=== PATIENT | male | born 1970 | race African-American/Black ===

== ENCOUNTER → 2021-01-10 09:41 | Outpatient (BNVA) | payer OTHER, SELFPAY | PROVIDERS: PCP Internal Medicine; Visit Provider Urology ==

== ENCOUNTER → 2022-01-08 09:17 | Outpatient (BNVA) | payer OTHER, SELFPAY | PROVIDERS: PCP Internal Medicine; Visit Provider Urology ==

== ENCOUNTER → 2022-11-05 11:00 | Outpatient (BNVA) | payer OTHER, SELFPAY | PROVIDERS: PCP Internal Medicine; Visit Provider Urology | DX: N52.9 Male erectile dysfunction, unspecified (principal); E29.1 Testicular hypofunction | CPT/HCPCS: 99212 ==

== ENCOUNTER 2023-10-16 14:57 | Outpatient (AMB) | payer MEDICAID, SELFPAY ==
--- NOTE | 2023-10-16 15:08 | A.OFFVIS_ITS ---
Intake Intake Visit Reasons: follow up/ Medication Intake Note: Patient is Present for Follow Up Urology Medication:Tadalafil Antibiotic Allergies: none Blood Thinners: None Allergies metal Allergy (Unknown, Uncoded 11/05/22 11:29) Unknown Soap & Cleansers Allergy (Unknown, Uncoded 08/26/19 00:00) betito dishwashing soap HPI HPI Comments History of Present Illness Details Edmundo PALACIO is a very pleasant male. They are a patient of Dr Izquierdo? . They are seen in the office today for the following urologic conditions. - epididymal scarring - erectile dysfunction - microscopic hematuria Here for yearly follow-up Baseline daily tadalafil 10 mg Like to switch from 20 mg on demand to the 100 mg sildenafil Prescriptions were provided Will check PSA Microscopic Hematuria: Clear on exam - has neovascularity on back of prostate Stable with no recurrence. Microscopic hematuria was diagnosed during routine UA with PCP. They are here for the 12 month evaluation. Since the last visit the patient has has not noticed gross hematuria, continues to test postive for microscopic hematuria. Relevant medical history for renal insufficiency, tobacco use. Associated symptoms include dysuria No frequency No urgency No decreased urinary stream No pain No nausea No weight loss No Radiographic imagin , CT IVP normal. Other investigations 05/03 , cytology, normal. Erectile dysfunction: He presents today for for continued evaluation and management of erectile dysfunction. Symptoms have been present for/since several months ago. Procedure(s)/Diagnosis causing dysfunction include renal insufficiency - does not get adequate sleep. Current treatment includes none. Prior therapies include oral medications - has responded. At this time he experiences erections are partial and adequate for vaginal penetration, that undergo rapid detumesence after penetration, RAFAEL 12- 16 Mild-Moderate ED. Nocturnal erections do not occur. Currently they are in a stable relationship. Overall he is is not satisfied with the current management. Therapeutic plan includes oral medication - generic rx provided COUNTS INCLUDE 234 BEDS AT THE [facility] Medical History Anxiety Chronic kidney disease, stage 3 Chronic obstructive pulmonary disease (COPD) Eczema Epididymal pain Erectile dysfunction due to arterial insufficiency HTN (hypertension) Hypogonadism in male Microscopic hematuria OA (osteoarthritis) Tobacco abuse Review of Systems Const Denies chills and Denies fever(s) Card Reports no additional complaints and Denies syncope Resp Denies cough GI Denies abdominal pain and Denies heartburn Reports as per HPI and Denies change in libido Neuro Denies syncope Psych Denies change in libido Endo Denies change in libido Physical Exam Const General: cooperative, healthy appearing, comfortable and no acute distress Orientation/consciousness: patient oriented x3 HEENT Face and sinus: Yes normal facial exam Mouth: moist mucous membranes Neck Neck: Yes normal visual inspection, Yes full ROM and Yes trachea midline Chest Chest palpation & inspection: normal inspection of the chest Resp Effort & Inspection: normal respiratory effort, able to speak in complete sentences and no respiratory distress GI Inspection: Yes normal to inspection Back/Spine/Pelvis Cervical Spine: normal cervical lordosis Thoracic/Lumbar Spine: thoracic and lumbar spine normal to inspection Skin General skin exam: no rashes or lesions noted Neuro General: patient oriented x3, gait normal, tone normal and moves all extremities Extrem General: Yes normal to inspection and Yes capillary refill normal Assessment & Plan Assessment & Plan (1) Erectile dysfunction: Code(s): N52.9 - Male erectile dysfunction, unspecified Qualifiers: Erectile dysfunction type: vasculogenic Vasculogenic erectile dysfunction type: due to arterial insufficiency Qualified Code(s): N52.01 - Erectile dysfunction due to arterial insufficiency (2) Hypogonadism: Plan 12 month follow-up PSA Orders: Orders Prostate Specific Antigen 364 Days N52.9 - Male erectile dysfunction, unspecified Medications: New sildenafil administer 60 minutes before intended activity 100 mg PO ONCE 30 tabs 1RF sexual activity 30 days E11.69 - Type 2 diabetes mellitus with other specified complication, N52.1 - Erectile dysfunction due to diseases classified elsewhere, N52.9 - Male erectile dysfunction, unspecified Discontinued tadalafil Discontinued Reason: Patient Completed Course 20 mg PO DAILY PRN 30 tabs 3RF sexual activity 30 days N52.9 - Male erectile dysfunction, unspecified Patient Instructions: Imaging studies, laboratory and physical exam results were discussed and reviewed in detail. No major barriers to patient understanding were identified. An opportunity to ask questions regarding the treatment plan was provided. All questions were answered. The patient expressed understanding and agreement with the above treatment plan. The patient is aware they should contact our office by phone for worsening of their current condition or the appearance of new urologic symptoms. Compliance is encouraged with any medications and followup testing that is ordered. It is a privilege to participate in the urologic care of your patient. If you have any questions or concerns regarding treatment for the above conditions, or other urologic issues, please do not hesitate to contact me. The office telephone contact is [phone]. This note is constructed using voice recognition software. While every effort has been made to ensure accuracy aeronautical engineering officer errors may have been included. Yours sincerely, Dr Alfonso Galindo MD, [facility] - Urology Providers of Expert, Compassionate Care for the Genitourinary System Coding Level of Care Code Est Pt Level 4 (08334) Diagnoses Erectile dysfunction due to arterial insufficiency N52.01 Erectile dysfunction type: vasculogenic Vasculogenic erectile dysfunction type: due to arterial insufficiency Hypogonadism
== END 2023-10-16 15:47 | disposition home or self-care (01) ==
PROVIDERS: PCP Internal Medicine; Visit Provider Urology
DX: N52.01 Erectile dysfunction due to arterial insufficiency (principal)
CPT/HCPCS: 99214

== ENCOUNTER → 2023-10-16 14:57 | Outpatient (BNVA) | payer OTHER, SELFPAY | PROVIDERS: PCP Internal Medicine; Visit Provider Urology | DX: N52.01 Erectile dysfunction due to arterial insufficiency (principal) | CPT/HCPCS: 99212 ==

== ENCOUNTER 2025-02-24 08:30 | Outpatient (REF) | payer MEDICAID, SELFPAY ==
--- OUTSIDE RECORDS SUMMARY | 2025-02-24 08:34 | XMS_ITS | Encounter Summary ---
Author Organization [facility] Address [address] [place] [address] Phone Care Team Providers Care Pig Machine Operator Name Role Phone Kendall Lane MD Primary Care Provider [phone] Encounter Details Date Type Department Care Team (Late st Contact Info) Description 2022 Telephone [facility] [address] [place] [address] Branden Lmoeli MD [address] [place] [address], [address] [address] Social History Tobacco Use Types Packs/Day Years Used Date Smoking Tobacco: Every Day Cigarettes 0.3 36.3 Started: 11/16/1988 Smokeless Tobacco: Never Alcohol Use Standard Drinks/Week Comments Yes 0 (1 standard drink = 0.6 oz pure alcohol) Alcoholic Drinks/day: Occasional social drink Sex and Gender Information Value Date Recorded Sex Assigned at Not on file Legal Sex Male 4:40 PM EST Gender Identity Not on file Sexual Orientation Not on file documented as of this encounter Miscellaneous Notes * Telephone Encounter - Vivian Corado - 09/24/2022 11:38 AM EST Pls advise, I thought it was a one time deal * Telephone Encounter - Deena Serna - 09/22/2022 9:40 AM EST Pt called back he needs this sent over today because he is now out of meds Thank you * Telephone Encounter - Deena Serna - 2022 8:36 AM EDT Pt called, he needs a refill for Suboxone please send to [facility] on [address] Thank you documented in this encounter Plan of Treatment Not on file documented as of this encounter Visit Diagnoses Not on filedocumented in this encounter Care Teams Pig Machine Operator Relationship Specialty Start Date End Date Kendall Lane MD [address] [place] [address] PCP - General Internal Medicine 02/10/24 documented as of this encounter
--- OUTSIDE RECORDS SUMMARY | 2025-02-24 08:34 | XMS_ITS | Clinical Summary ---
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 Do not stop for any reason without calling [phone]. 02/25/2024 Active cyclobenzaprine (FLEXERIL) 10 mg tablet Take 1 Tablet by mouth 3 times daily as needed. Active empagliflozin (Jardiance) 10 mg tablet Take 10 mg by mouth daily. 09/15/2024 Active gabapentin (NEURONTIN) 300 mg capsule 1 Capsule 3 times daily. 02/09/2024 Active hydrOXYzine HCL (ATARAX) 25 mg tablet 1 Tablet as needed. 02/04/2024 Active metoprolol succinate (TOPROL-XL) 25 mg 24 hr tablet Take 1 Tablet by mouth daily. 02/25/2024 Active rosuvastatin (CRESTOR) 40 mg tablet Take 1 Tablet by mouth daily. 02/25/2024 Active sildenafiL (VIAGRA) 100 mg tablet 1 Tablet as needed. 02/22/2024 Active spironolactone (ALDACTONE) 25 mg tablet Take 0.5 Tablets by mouth daily for 180 days. 09/15/2024 03/14/20 Active traZODone (DESYREL) 50 mg tablet 1 Tablet as needed. 12/20/2023 Active valACYclovir (VALTREX) 1 gram tablet Take 1 Tablet by mouth as needed. Active valsartan (DIOVAN) 40 mg tablet Take 1 Tablet by mouth daily. 07/05/2024 Active warfarin (COUMADIN) 7.5 mg tablet Take 1 Tablet by mouth daily. Pt is followed by [facility]. 02/09/2024 Active clonazePAM (KlonoPIN) 1 mg tablet Take 1 tablet (1 mg total) by mouth 2 (two) times a day. Active Active Problems Problem Noted Date Diagnosed Date Tobacco use 12/26/2024 Assessment & Plan (12/26/2024 3:38 PM EST): - Advised to quit smoking - Prefers to quit cold turkey without cessation aids Coronary artery disease invo lving cabazon coronary artery of cabazon heart without angina pectoris 02/25/2024 Overview (10/11/2024): NSTEMI 01/2024 with MIMA proximal and distal LCX Last Assessment & Plan: Patient is the patient denies any anginal sounding chest discomfort. Continue ongoing medical therapy with beta-lizeth, Plavix and statin. He is not on aspirin due to his warfarin therapy. Assessment & Plan (01/10/2025 6:21 PM EST): Orders: ECG 12 lead MR Cardiac Morphology and Function wo and w Contrast; Future Assessment & Plan (12/26/2024 3:38 PM EST): Stable-no recurrent anginal sx. - Discontinue Plavix in January 2025 - Maintain regimen of aspirin 81 mg and Coumadin thereafter Orders: ECG 12 lead Ischemic cardiomyopathy 02/25/2024 Overview (12/26/2024): - LVEF 25-30% at the time of his NM - Repeat echo most recently-presumably on maximally tolerated GDMT from November 2024 showed moderate to severe, segmental LV systolic dysfunction with ejection fraction of 30 to 35%, akinesis of the mid anteroseptal, mid anterior, apical anterior, and apical septal mc without obvious LV apical thrombus noted though Dr Rosen could not be 100% certain about this, normal RV size and systolic function, grade 1 diastolic dysfunction consistent with normal left atrial pressure, normal pulmonary artery systolic pressure-roughly unchanged from May 2024 - intolerant to Entresto with side effect of GI upset Assessment & Plan (01/10/2025 6:21 PM EST): Orders: Ambulatory referral to Cardiac Electrophysiology ECG 12 lead MR Cardiac Morphology and Function wo and w Contrast; Future Assessment & Plan (12/26/2024 3:38 PM EST): Stable. Despite revascularization and GDMT to the extent tolerated, there has been no significant recovery of ejection fraction above 35%. Thankfully he is asymptomatic and euvolemic with NYHA Class 0-1 sx. - Continue current GDMT regimen: spironolactone 25 mg daily, metoprolol 25 mg daily (XL preparation), valsartan 40 mg daily, Jardiance 10 mg daily-will need an updated BMP after spironolactone initiation. I have ordered to be done first available. - Arrange consultation with EP to discuss potential placement of a subcutaneous defibrillator - Encourage adherence to GDMT for potential improvement in ejection fraction - I have given him some literature about AICDs to read on his own time. Orders: Basic metabolic panel; Future Ambulatory referral to Cardiac Electrophysiology; Future Left ventricular apical thrombus 02/04/2024 Overview (10/11/2024): Last Assessment & Plan: There is a small apical thrombus persistent on echocardiogram from 05/2024. Continue Coumadin as prescribed and followed by the [facility] with a goal INR 2-3. Will recheck his LVEF and thrombus in his upcoming echocardiogram in about 3 months time. Assessment & Plan (12/26/2024 3:38 PM EST): Seems to have resolved but given the persistent nidus for the thrombus due to apical akinesis. - Continue Coumadin with an INR goal of 2-3 - Consider transitioning to DOAC in the future Hyperlipidemia 12/31/2022 Overview (10/11/2024): Last Assessment & Plan: Well-controlled lipid profile on current dose statin. 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 Seen for hypogonadism. Flexible cystoscopy done. Urology (04/15/18): Started on tamsulosin. Lab work ordered. CT abdomen and pelvis ordered. Evaluate for hypogonadism and male. Follow-up in 2-3 weeks for cystoscopy. Anxiety 02/15/2018 Primary hypertension 02/09/2018 Overview (10/11/2024): Last Assessment & Plan: Patient's blood pressure is well-controlled on current regimen of SGLT2, ARB and beta-lizeth. Continue to follow with addition of MRA Cocaine use 03/31/2016 Overview (10/11/2024): Accidental heroin overdose 08/16/21 Seeing [facility] in [place], [place] 03/2016 CKD (chronic kidney disease) stage 3, GFR 30-59 ml/min ([facility] V24, [facility] V28) 04/18/2015 Overview (10/11/2024): Renal (09/06/17): resolving herson cause unkown, repeat labs. Dr Tatum Secondary to HERSON Hospitalized at [facility] 03/2015 with creatinine 10 - thought 2/2 rhabdo 2/2 cocaine abuse, NSAIDs, uncontrolled HTN Spot spep showed monoclonal IgG Lambda - 24h urine pending Following with renal and trasplant associates Most recent creatinine 1.7 Eczema 09/05/2014 Left knee pain 06/08/2014 Overview (10/11/2024): [facility] - 06/06/14 - Kenalog injection; followup as needed Shoulder bursitis 01/12/2013 Generalized osteoarthrosis, involving multiple s ites 12/07/2012 Chronic low back pain 08/13/2010 Overview (10/11/2024): MRI 10/2012 discogenic degenerative changes at the L4-5 and L5-S1 levels, with diffuse bulging of the L4-5 disc and a COPD (chronic obstructive pu lmonary disease) ([facility] V24, [facility] V28) 08/13/2010 Overview (10/11/2024): IMPRESSION: Moderate obstructive ventilatory defect with reversibility to inhaled bronchodilator and with a borderline reduced DLCO. These results are most consistent with, but not diagnostic of, airways disease like asthma or COPD with a reversible component and some early emphysema. 02 saturation, resting on room air, was normal at 97%. Encounters Date Type Department Care Team Description 02/14/2025 Telephone [facility] [address] [place] [address] Kade Lunsford MD Procedure (Primary ICD ) 02/13/2025 Telephone [facility] - [address] [place] [address] Kade Lunsford MD Results 01/19/2025 Telephone [facility] [address] [place] [address] Kade Lunsford MD Appointment (Cardiac MRI) 01/10/2025 3:25 PM EST Consult [facility] - [address] [place] [address] Kade Lunsford MD Coronary artery disease involving cabazon coronary artery of cabazon heart without angina pectoris (Primary Dx); Ischemic cardiomyopathy 12/26/2024 11:20 AM EST Office Visit [facility] [address] [place] [address] Joanna Rosen MD Coronary artery disease involving cabazon coronary artery of cabazon heart without angina pectoris (Primary Dx); Ischemic cardiomyopathy; Left ventricular apical thrombus; Tobacco use 12/07/2024 3:00 PM EST Ancillary Procedure [facility] [address] [place] [address] Ischemic cardiomyopathy; Coronary artery disease involving cabazon coronary artery of cabazon heart without angina pectoris; Primary hypertension; Hyperlipidemia, unspecified hyperlipidemia type; Left ventricular apical thrombus from Last 3 Months Immunizations Name Administration Dates Next Due Influenza trivalent, 0.5mL, preservative free (Fluarix; FluLaval; Fluzone) ages 6mo and older (Afluria) 3 years and older 07/13/2014 Tdap Tetanus diptheria acell ular pertussis (Boostrix; Adacel) 7yo and older 01/20/2020,08/13/2010 Surgical History Surgery Date Site/Laterality Comments OTHER SURGICAL HISTORY PROCEDURE: DENIES PREVIOUS SURGERY; COMMENT: ? groin hernia repair as child Medical History Medical History Date Comments Chronic low back pain 08/13/2010 DX:Chronic low back pain COPD (chronic obstructive pu lmonary disease) ([facility] V24, [facility] V28) 08/13/2010 DX:COPD (chronic o bstructive pulmonary disease) ([facility]) Smoking DX:Smoking Atopic dermatitis DX:Atopic derm atitis Anxiety 02/15/2018 DX:Anxiety Microscopic hematuria 04/29/2018 DX:Microsc opic hematuria Recurrent genital herpes simplex 09/21/2018 DX:Recurrent genital herpes simplex Type 2 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, without long-term current use of insulin ([facility] V24, [facility] V28) 12/31/2022 DX:Type 2 diabetes mellitus with chronic kidney disease, without long-term current use of insulin ([facility]) Family History Medical History Relation Name Comments Arthritis Father Relation Name Status Comments Brother Alive HIV, DM Daughter 1 Alive Healthy Daughter 2 Alive Healthy Father Lung CA (+ smok er) Mother DM Sister (Age 45) Murder Social History Tobacco Use Types Packs/Day Years Used Date Smoking Tobacco: Every Day Cigarettes Tobacco Cessation:Ready to Q uit: Not Asked; Counseling Given: Not Answered Comments:10 cigarettes daily Alcohol Use Standard Drinks/Week Comments Not Currently 0 (1 standard drink = 0.6 oz pur e alcohol) Sex and Gender Information Value Date Recorded Sex Assigned at Not on file Legal Sex Male 1:02 PM EST Gender Identity Not on file Sexual Orientation Not on file Obstetrics History Last Filed Vital Signs Vital Sign Reading Time Taken Comments Blood Pressure 122/70 01/10/2025 3:29 PM EST Pulse 52 01/10/2025 3:29 PM EST Temperature - - Respiratory Rate - - Oxygen Saturation 98% 01/10/2025 3:29 PM EST Inhaled Oxygen Concentration - - Weight 84.4 kg (186 lb) 01/10/2025 3:29 PM EST Height 175.3 cm (5' 9 ) 01/10/2025 3:29 PM EST Body Mass Index 27.47 01/10/2025 3:29 PM EST Plan of Treatment Health Maintenance Due Date Last Done Comments Diabetes: Annual Foot Exam 1980 Diabetes: Annual Retina Eye Exam 1980 Lung Cancer Screening (Low Dose CT) 10/14/2022 Social Influencers of Health Screening 10/14/2022 Colorectal Cancer Screening: Stool Based Tests (FOBT/FIT) 06/24/2024 06/24/2023 COVID-19 Vaccine ( season) 2024 11/02/2023, 08/13/2022, 11/28/2021, Additional history exists Diabetes: Annual Urine Albumin-Creatinine Ratio (uACR) 02/11/2025 02/12/2024 Diabetes: Blood Sugar Control Test (HGBA1C) 03/10/2025 09/09/2024, 02/12/2024, 02/05/2024, Additional history exists Influenza Vaccine (Season Ended) 2025 07/13/2014 Depression Screening 09/09/2025 09/09/2024 Diabetes: Annual GFR (Glomerular Filtration Rate) 09/09/2025 09/09/2024, 06/17/2024, 06/17/2024, Additional history exists Hypertension/CHF/CAD Annual BMP Blood Test 09/09/2025 09/09/2024, 06/17/2024, 06/17/2024, Additional history exists Cholesterol Screening (Lipid Panel) 06/17/2029 06/17/2024, 06/17/2024, 03/04/2024, Additional history exists DTaP,Tdap,and Td Vaccines (3 - Td or Tdap) 01/19/2030 01/20/2020, 08/13/2010 HIV Screening Completed 04/27/2018 Hepatitis C Screening Completed 06/25/2023 Hepatitis B Vaccines Completed 08/26/2023, 06/25/20 23 Zoster Vaccines Completed 08/26/2023, 06/26/2023 Pneumococcal Vaccine: 50+ Years Completed 03/03/2024 Pneumococcal Vaccine: Pediatrics (0 to 5 Years) and At-Risk Patients (6 to 64 Years) Completed 03/03/2024 HIB Vaccines Aged Out No longer eligi ble based on patient's age to complete this topic HPV Vaccines Aged Out No longer eligi ble based on patient's age to complete this topic Hepatitis A Vaccines Aged Out No long er eligible based on patient's age to complete this topic IPV Vaccines Aged Out No longer eligi ble based on patient's age to complete this topic MMR Vaccines Aged Out No longer eligi ble based on patient's age to complete this topic Meningococcal ACWY Vaccine Aged Out N o longer eligible based on patient's age to complete this topic Meningococcal B Vaccine Aged Out No l onger eligible based on patient's age to complete this topic RSV Immunization Patients Under 20 months Aged Out No longer eligible based on patient's age to complete this topic Varicella Vaccines Aged Out No longer eligible based on patient's age to complete this topic Procedures Procedure Name Priority Date/Time Associated Diagnosis Comments ECG 12-LEAD Routine 01/10/2025 3:32 PM EST Ischemic cardiomyopathy Coronary artery disease involving cabazon coronary artery of cabazon heart without angina pectoris ECG 12-LEAD Routine 12/26/2024 11:14 AM EST Coronary artery disease involving cabazon coronary artery of cabazon heart without angina pectoris TRANSTHORACIC ECHOCARDIOGRAM (TTE) COMPLETE W/ CONTRAST Routine 12/07/2024 3:51 PM EST Ischemic cardiomyopathy Coronary artery disease involving cabazon coronary artery of cabazon heart without angina pectoris Primary hypertension Hyperlipidemia, unspecified hyperlipidemia type Left ventricular apical thrombus ANNUAL BMP BLOOD TEST Routine 06/17/2024 LIPID PANEL Routine 06/17/2024 HIV SCREENING Routine 04/27/2018 HEMOGLOBIN A1C Routine 08/06/2015 from Last 3 Months or Most Recently Relevant to Health Maintenance Results * ECG 12 lead (01/10/2025 3:32 PM EST) Only the most recent of2 resultswithin the time period is included. Ventricular Rate ECG 52 BPM GEMUSE Atrial Rate 52 BPM GEMUSE P-R Interval 134 ms GEMUSE QRS Duration 104 ms GEMUSE Q-T Interval 430 ms GEMUSE QTc 399 ms GEMUSE P Wave [place] 65 degrees GEMUSE R [place] -59 degrees GEMUSE T [place] -44 degrees GEMUSE ECG Interpretation Sinus bradycardia Left anterior fascicular block Cannot rule out Inferior infarct (cited on or before 01-FEB-2024) T wave abnormality, consider lateral ischemia When compared with ECG of 26-DEC-2024 11:14, Premature ventricular complexes are no longer Present Confirmed by GURDEEP LUNSFORD ([id number]) on 01/10/2025 6:09:29 PM GEMUSE 01/10/2025 3:32 PM EST 01/10/2025 6:09 PM EST us Kade Lunsford MD ECG ORDERABLES Final Resu lt GEMUSE * (ABNORMAL) TRANSTHORACIC ECHOCARDIOGRAM (TTE) COMPLETE W/ CONTRAST (12/07/2024 3:51 PM EST) LV EDV (A2C) 114 mL CV PACS LV EDV (A4C) 132 mL CV PACS LV Diastolic Volume (BP) 125 62 - 150 mL CV PACS LV ESV (A2C) 91 mL CV PACS LV ESV (A4C) 82 mL CV PACS LV Systolic Volume (BP) 87(A) 21 - 61 mL CV PACS IVSD 1.1(A) 0.6 - 1.0 cm CV PACS LVIDD 6.3(A) 4.2 - 5.8 cm CV PACS LVIDS 5.4(A) 2.5 - 4.0 cm CV PACS LVOT Diameter 2.2 cm CV PACS LVOT Mean Erasmo 0.5 m/s CV PACS LVOT Mean Grad 1 mmHg CV PACS LVOT Mean Grad 1 mmHg CV PACS LVOT Peak VTI 12.6 cm CV PACS LVOT Peak Erasmo 0.7 m/s CV PACS LVOT Peak Gradient 2 mmHg CV PACS LVPWD 1.1(A) 0.6 - 1.0 cm CV PACS MV E' Tissue Velocity Lateral 5 cm/s CV PACS MV E' Tissue Velocity Septal 3 cm/s CV PACS Ejection Fraction (A2C) 21 % CV PACS Ejection Fraction (A4C) 38 % CV PACS Ejection Fraction (BP) 30 % CV PACS LVOT Area 3.8 cm2 CV PACS LVOT Stroke Volume 48 mL CV PACS Left Atrium Minor [place] 6.1 cm CV PACS Left Atrium Major [place] 5.9 cm CV PACS LA Area Sys (A2C) 25 cm2 CV PACS LA Area Sys (A4C) 19 cm2 CV PACS LA Volume (BP) 63 mL CV PACS RA Area 15.4 cm2 CV PACS RA 2D Volume 40 mL CV PACS AV Mean Gradient 2 mmHg CV PACS AV Mean Gradient 2 mmHg CV PACS Ao VTI 15.8 cm CV PACS AV Peak Erasmo 0.9 m/s CV PACS AV Peak Gradient 3 mmHg CV PACS AV Area Continuity Equation 3.0 cm2 CV PACS AV Area Peak Velocity 3.0 cm2 CV PACS Aortic Arch 2.4 cm CV PACS Ascending Aorta 3.6 cm CV PACS Aortic Sinus Valsalva 3.8 cm CV PACS IVC Proximal 1.8 cm CV PACS MV Deceleration [place] 3.9 m/s2 CV PACS E Wave Deceleration Time 95(A) 119 - 242 ms CV PACS MV PHT 28 ms CV PACS MV Peak A Erasmo 0.80 m/s CV PACS MV Peak E Erasmo 0.40 m/s CV PACS MV Mean Gradient 1 mmHg CV PACS MV Mean Gradient 1 mmHg CV PACS MV Mean Gradient 1 mmHg CV PACS MV Mean Gradient 1 mmHg CV PACS MV Mean Gradient 1 mmHg CV PACS MV VTI 14.8 cm CV PACS Mitral Valve Max Velocity 0.9 m/s CV PACS MV Peak Gradient 3 mmHg CV PACS MV Area PHT 7.9 cm2 CV PACS MV Area Continuity Equation 3.2 cm2 CV PACS PV Acceleration Time 136 ms CV PACS PV Mean Gradient 1 mmHg CV PACS PV Mean Gradient 1 mmHg CV PACS PV VTI 10.8 cm CV PACS PV Peak Velocity 0.7 m/s CV PACS PV Peak Gradient 2 mmHg CV PACS RV Diastolic Basal Dimension 3.9 2.5 - 4.1 cm CV PACS RV S' 7 cm/s CV PACS TAPSE 20 mm CV PACS TR Peak Velocity 2.14 m/s CV PACS TR Peak Gradient 18 mmHg CV PACS E/E' Ratio Septal 13 CV PACS E/E' Ratio Averaged 11 CV PACS Relative Wall Thickness ratio 0.35 CV PACS LVOT:AV VTI Index 0.80 CV PACS FS 14 % CV PACS LV Mass 2D 304 g CV PACS MV VTI:LVOT VTI ratio 1.2 CV PACS LVOT flow 190 mL/s CV PACS AV Velocity Ratio 0.78 CV PACS E/A Ratio 0.5 CV PACS E/E' Ratio Lateral 8 CV PACS BSA 2.09 m2 CV PACS LV Diastolic Volume Index (BP) 61 34 - 74 mL/m2 CV PACS LV Systolic Volume Index (BP) 42(A) 11 - 31 mL/m2 CV PACS LV EDV Index (A4C) 64 mL/m2 CV PACS LV ESV Index (A4C) 40 mL/m2 CV PACS LV EDV Index (A2C) 55 mL/m2 CV PACS LV ESV Index (A2C) 44 mL/m2 CV PACS LA Volume Index (BP) 31 mL/m2 CV PACS LVIDD Index 3.06 cm/m2 CV PACS LVIDS Index 2.62 cm/m2 CV PACS LV Mass Index 2D 147(A) 50 - 102 g/m2 CV PACS LVOT Stroke Index 23 mL/m2 CV PACS RA 2D Volume Index 19 18 - 32 mL/m2 CV PACS JULES Index (VTI) 1.47 cm2/m2 CV PACS JULES Index (Pk Erasmo) 1.46 cm2/m2 CV PACS Ascending Aorta Index 1.75 cm/m2 CV PACS Right Ventricular Peak Systolic Pressure 21 mmHg CV PACS Est. RA Pressure 3 mmHg CV PACS Anatomical Region Laterality Modality Ultrasound Narrative 12/22/2024 2:35 PM EST ?Left ventricle cavity is mildly dilated. ??Left ventricular mc are mildly thickened. ??There is moderate to severe, segmental LV systolic dysfunction with wall motion abnormalities described below. ??There is no obvious evidence of LV apical thrombus though focused views of the apex were not obtained and therefore I cannot be 100% certain. ?Right ventricle cavity is normal. Right ventricular systolic function is normal. ?There is no hemodynamically significant valve disease. ?There is grade 1 diastolic dysfunction consistent with normal left atrial pressure. ??There is normal pulmonary artery systolic pressure. ?Compared to prior echo from 05/30/2024, there are no appreciable differences. Moderate to severe segmental left ventricular systolic dysfunction. ??No obvious left ventricular apical thrombus but I cannot be certain due to lack of focused imaging. Left Ventricle Left ventricle cavity is mildly dilated. There is mild concentric hypertrophy. Systolic function is moderately to severely decreased with an ejection fraction of 30-35%. There is akinesis of the mid anteroseptal, mid anterior, apical anterior, apical septal mc. There is grade I (mild) diastolic dysfunction and normal left atrial pressure. There is no obvious LV apical thrombus noted. However, focused images of the apex were not performed. There are trabeculations in the apex along with a false tendon that make it difficult to be certain. Right Ventricle Right ventricle cavity appears normal. Systolic function is normal. Left Atrium Left atrium cavity size is normal. Right Atrium Right atrium cavity is normal. IVC/SVC Inferior vena cava structure is normal. RA pressures is estimated to be 3 mmHg (IVC diameter <21 mm and decreases >50% during inspiration). Mitral Valve The leaflets are mildly thickened. There is mild annular calcification. There is trace regurgitation. There is no evidence of mitral valve stenosis. Tricuspid Valve Tricuspid valve structure is normal. There is no significant regurgitation. The right ventricular systolic pressure is normal. The RVSP is estimated at 21 mmHg. Aortic Valve The aortic valve is trileaflet. The leaflets are not thickened and exhibit normal excursion. There is no regurgitation or stenosis. Pulmonic Valve Pulmonic valve structure is normal. There is trace pulmonic valve regurgitation. Ascending Aorta The aorta appears normal in size. Pericardium Pericardium appears normal. There is no pericardial effusion. Study Details Overall the study quality was suboptimal. Definity contrast was given to enhance imaging. Wall Scoring Baseline Score Index: 2.00 The left ventricular wall motion is globally hypokinetic. Result [facility] Letitia Rebolledo NP CV ECHO PROCEDURES Final Result * Annual BMP Blood Test (06/17/2024) Pathologist [facility] Annual BMP Blood Test Abstracted Result [facility] Provider HEALTH MAINTENANCE Final Result * Lipid panel (06/17/2024) [facility] LDL/HDL Ratio 3 0 - 4 Triglycerides 149 0 - 150 mg/dL Cholesterol 152 0 - 200 mg/dL HDL 62 >=40 mg/dL LDL Cholesterol 61 0 - 100 mg/dL Blood Venous blood specimen / Unknown Result [facility] Provider LAB BLOOD ORDERABLES Cherelle l Result * HIV Screening (04/27/2018) [facility] HIV Screening Abstracted Result [facility] Provider HEALTH MAINTENANCE Final Result * Hemoglobin A1c (08/06/2015) [facility] Hemoglobin A1C 5.4 4.0 - 6.0 % Blood Venous blood specimen / Unknown Result [facility] Provider LAB BLOOD ORDERABLES Cherelle l Result from Last 3 Months or Most Recently Relevant to Health Maintenance Insurance MEDICAID - [place] Care 

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
--- OUTSIDE RECORDS SUMMARY | 2025-02-24 08:35 | XMS_ITS | Encounter Summary ---
Author Organization [facility] Address [address] [place] [address] Care Team Providers Care Textile Designs Sales Representative Name Role Phone Kendall Lane MD Primary Care Provider [phone] Reason for Visit * Reason Onset Date Comments Results 02/13/2025 Encounter Details Date Type Department Care Team ([facility] st Contact Info) Description 02/13/2025 Telephone [facility] [address] [facility] [address] [place] [address] Kade Zhang MD [address] [facility] [address] [place] [address] Results Social History Tobacco Use Types Packs/Day Years Used Date Smoking Tobacco: Every Day Cigarettes Comments:10 cigarettes daily Alcohol Use Standard Drinks/Week Comments Not Currently 0 (1 standard drink = 0.6 oz pur e alcohol) Sex and Gender Information Value Date Recorded Sex Assigned at Not on file Legal Sex Male 1:02 PM EST Gender Identity Not on file Sexual Orientation Not on file documented as of this encounter Progress Notes * LEO Cole - 02/14/2025 4:21 PM EDT Results given to Dr Zhang * Rita Flores MA - 02/13/2025 4:21 PM EDT Results scanned in for review * Eliot Isabel - 02/13/2025 4:10 PM EDT Patient called today to request the results of 02/06/25 cardiac MRI ordered by Vicente. I informed thepatient that it can take 7-10 business days for the results to be read and interpreted, he understands that we will reach out once it is results to inform him of next steps. If there are any questions Edmundo can be reached at [phone]. Please call him when his results come back. documented in this encounter Plan of Treatment Not on file documented as of this encounter Visit Diagnoses Not on filedocumented in this encounter Care Teams Textile Designs Sales Representative Relationship Specialty Start Date End Date Kendall Lane MD [address] [place] [address] PCP - General 02/25/24 documented as of this encounter
--- OUTSIDE RECORDS SUMMARY | 2025-02-24 08:35 | XMS_ITS | Encounter Summary ---
Author Organization [facility] Address [address] [place] [address] Care Team Providers Care Marketing Analytics Manager Name Role Phone Kendall Lane MD Primary Care Provider [phone] Reason for Visit * Reason Onset Date Comments Procedure 02/14/2025 Primary ICD Encounter Details Date Type Department Care Team ([facility] st Contact Info) Description 02/14/2025 Telephone [facility] [address] [facility] [address] [place] [address] Kade Zhang MD [address] [facility] [address] [place] [address] Procedure (Primary ICD ) Social History Tobacco Use Types Packs/Day Years [...] as of this encounter Progress Notes * Eliot Isabel - 02/22/2025 3:28 PM EDT Edmundo called today wondering if we were going to move ahead with a defibrillator s/p cardiac MRI.I spoke to Alexa and informed Edmundo that Dr Zhang is out this week and he will read the MRI once he returns, and that we will contact him sometime next week to discuss next steps. Edmundo can be reached at [phone] if there are any questions. * William Webb - 02/17/2025 11:49 AM EDT Edmundo had called about his MRI results ad wanted to go over them and see when his procedure will be scheduled. I informed him that Dr Zhang will be looking over the results and we will give him a call back when the results are read and when we can schedule his procedure. * Alexa Yang - 02/14/2025 2:[address] Dickinson request to book ICD after MRI done. Patient had MRI done I followed up with Dr. Zhang he stated he will review MRI and let me know if to proceed with booking documented in this encounter Plan of Treatment Not on file documented as of this encounter Visit Diagnoses Not on filedocumented in this encounter Care Teams Marketing Analytics Manager Relationship Specialty Start Date End Date Kendall Lane MD [address] [place] [address] PCP - General 02/25/24 documented as of this encounter
--- OUTSIDE RECORDS SUMMARY | 2025-02-24 08:35 | XMS_ITS | Encounter Summary ---
Author Organization [facility] Address [address] [place] [address] Phone Care Team Providers Care Rn Disease Management Name Role Phone Kendall Lane MD Primary Care Provider Reason for Visit * Reason Comments Med Refill Encounter Details Date Type Department Care Team ([facility] st Contact Info) Description 01/07/2024 Refill [facility] [address] [place] [id number] Branden Lomeli MD [address] [place] [address], [address] [address] Social History Tobacco Use Types Packs/Day Years [...] on file documented as of this encounter Plan of Treatment Not on file documented as of this encounter Visit Diagnoses Not on filedocumented in this encounter Care Teams Rn Disease Management Relationship Specialty Start Date End Date Kendall Lane MD [address] [place] [address] PCP - General Internal Medicine 02/10/24 documented as of this encounter
--- OUTSIDE RECORDS SUMMARY | 2025-02-24 08:35 | XMS_ITS | Clinical Summary ---
Author Organization [facility] Address [address] [place] [address] Care Team Providers Care Textile Converter Name Role Phone Kendall Lane MD Primary Care Provider [phone] Source Comments PLEASE NOTE, if this patient is a minor, it may be UNLAWFUL to discuss sensitive information that is contained in these records (such as FAMILY PLANNING, MENTAL HEALTH or SUBSTANCE ABUSE) with the minor patient's parent or other person without the patient's specific authorization.[facility] Allergies No known active allergies Medications traZODone (DESYREL) 50 mg tabletIndications :Other insomnia Take 1 Tablet by mouth nightly at bedtime 90 Tablet 1 11/02/20 23 Active MISCELLANEOUS MEDICAL SUPPLY MISCIndications:P rimary hypertension BP monitor Kit Code I10 1 Each 02/11/20 24 Active alcohol swabs (ALCOHOL PREP PADS)Indications: Type 2 diabetes mellitus with hyperglycemia, without long-term current use of insulin ([facility]) Use to test 3 times daily 100 Each 5 03/15/20 24 Active blood-glucose meter monitoring kitIndications:Co ntrolled type 2 diabetes mellitus without complication, without long-term current use of insulin ([facility]) as needed for blood glucose monitoring Pt is Diabetic E 11.9 1 Each 04/05/20 24 Active blood sugar diagnostic (FREESTYLE TEST) stripsIndications :Type 2 diabetes mellitus with hyperglycemia, without long-term current use of insulin ([facility]) Use 1 Each as directed 3 (three) times a day USE 1 FREESTYLE TEST STRIP TO TEST BLOOD GLUCOSE BEFORE se to test BG 3 times daily 100 Each 5 04/05/20 24 Active lancets 28 gaugeIndications: Type 2 diabetes mellitus with hyperglycemia, without long-term current use of insulin ([facility]) Use 1 Lancet as directed 3 (three) times a day To test blood glucose before meals!! 100 Each 5 04/05/20 24 Active valACYclovir (VALTREX) 1 gram tablet Take 1 Tablet by mouth 2 (two) times daily 30 Tablet 5 05/08/20 24 Active sildenafiL (VIAGRA) 100 mg tablet TAKE ONE TABLET 60 MINUTES BEFORE SEXUAL ACTIVITY. MAX OF ONE TABLET DAILY Authorized by: MERVIN WOLF 03/31/20 24 Active predniSONE (DELTASONE) 10 mg tablet Take 10 mg by mouth TAKE 1 TABLET BY MOUTH 1 TIME EACH DAY. Authorized by: ISAI LOMELI 04/09/20 24 Active valsartan (DIOVAN) 40 mg tabletIndications :Primary hypertension Take 1 Tablet by mouth once daily 90 Tablet 1 06/02/20 24 Active metoprolol succinate XL (TOPROL-XL) 25 mg 24 hr tabletIndications :Primary hypertension Take 1 Tablet by mouth once daily 30 Tablet 2 06/02/20 24 Active lidocaine (LIDODERM) 5 % patchIndications: Neck pain PLACE 1 PATCH ONTO THE SKIN DAILY. APPLY 1 PATCH TO THE AFFECTED AREA FOR A MAXIMUM OF 12 HOURS, FOLLOWED BY REMOVAL FOR 12 HOURS. 90 Patch 2 07/25/20 24 Active acetaminophen (TYLENOL) 500 mg tabletIndications :Routine general medical examination at a health care facility Take 1 Tablet by mouth every 6 (six) hours as needed for pain 60 Tablet 1 09/09/20 24 Active pioglitazone (ACTOS) 45 mg tabletIndications :Controlled type 2 diabetes mellitus without complication, without long-term current use of insulin ([facility]) Take 1 Tablet by mouth once daily 90 Tablet 1 09/11/20 24 Active DULoxetine (CYMBALTA) [address] capsule Take 30 mg by mouth once daily 08/22/20 24 Active hydrOXYzine HCL (ATARAX) 50 mg tablet Take 50 mg by mouth 2 (two) times daily 08/13/20 24 Active clonazePAM (KLONOPIN) 1 mg tablet TAKE 1 TABLET BY MOUTH TWICE A DAY NEEDED PANIC ATTACKS Authorized by: JEANINE YUEN 08/22/20 24 Active dapagliflozin propanediol (FARXIGA) 10 mg tabIndications:Co ntrolled type 2 diabetes mellitus without complication, without long-term current use of insulin ([facility]) Take 1 Tablet by mouth every morning 90 Tablet 1 10/27/20 24 Active glipiZIDE (GLUCOTROL) 10 mg tabletIndications :Controlled type 2 diabetes mellitus without complication, without long-term current use of insulin ([facility]) TAKE 1 TABLET BY MOUTH TWICE A DAY BEFORE MEALS 180 Tablet 11/28/19 25 Active MISCELLANEOUS MEDICAL SUPPLY MISCIndications:Rex tripp falls by miscellaneous route daily. Shower Chair Diagnosis- Multiple Fall Code- R 29.6 1 Each 12/16/19 25 Active cyclobenzaprine (FLEXERIL) 10 mg tablet TAKE 1 TABLET BY MOUTH 2 TIMES DAILY NEEDED FOR MUSCLE SPASMS. 90 Tablet 1 01/17/20 25 Active gabapentin (NEURONTIN) 300 mg capsuleIndication s:Diabetic polyneuropathy associated with type 2 diabetes mellitus ([facility]) Take 2 Capsules by mouth 3 (three) times daily 180 Capsule 3 01/17/20 25 Active rosuvastatin (CRESTOR) 40 mg tabletIndications :Other hyperlipidemia TAKE 1 TABLET BY MOUTH EVERYDAY AT BEDTIME 90 Tablet 1 01/23/20 25 Active warfarin 7.5 mg tabletIndications :Anticoagulation goal of INR 2 to 3 TAKE 1&1/2 TABLETS SUNDAYS,TUESDAYS , THURSDAYS & 1 TAB ALL OTHER DAYS DIRECTED BY [facility]MADIN CLINIC 34 Tablet 2 02/15/20 25 Active spironolactone (ALDACTONE) 25 mg tablet TAKE 1/2 TABLET BY MOUTH DAILY FOR 180 DAYS Authorized by: KATLIN FOUNTAIN 01/25/20 25 Active warfarin (COUMADIN) 7.5 mg tabletIndications :Anticoagulation goal of INR 2 to 3 TAKE 1&1/2 TABLETS SUNDAYS,TUESDAYS , THURSDAYS & 1 TAB ALL OTHER DAYS DIRECTED BY COUMADIN CLINIC 34 Tablet 2 01/13/20 25 025 Discontin ued(Reord er (E-Cancel Not Sent)) Active Problems Problem Noted Date Diagnosed Date CKD (chronic kidney disease) 03/03/2024 Overview (03/03/2024): Sees Nephrology Anticoagulation goal of INR 2 to 3 02/09/2024 NSTEMI (non-ST elevated myocardial infarction) ( [facility]) 02/08/2024 Overview (02/08/2024): Seen initially at [facility] 01/31/24 NSTEMI [facility]- transfer from [facility] for evaluation and management of NSTEMI. S[facility] chest and abdomen was obtained which no evidence of pulmonary embolism. Echo- consistent LAD infarct with a left ventricular thrombus Ischemic cardiomyopathy with LVEF 20-25% Urgent cath 01/31 revealed mild luminal irregularities of the LMCA, mild luminal irregularities of the LAD, 90% stenosis in the proximal subsection of OM1 which is the culprit lesion, 90% stenosis in the distal subsection of the distal LCx, small caliber nondominant RCA and minimal luminal irregularities of the ramus intermediate artery. He underwent PCI with MIMA to OM1 01/31 He underwent staged PCI with MIMA to LCx 02/01 Cardiac Rehab as an Outpatient F/U with Cardiology Dr Rosen on Discharge . Medication Metoprolol (metoprolol 25 mg oral tablet, extended release) 25 Milligram qd Rosuvastatin (Crestor 40 mg oral tablet) 1 tab(s) 40 Milligram By Mouth Daily Valsartan (valsartan 40 mg oral tablet) 40 Milligram 1 tablet By Mouth Daily for 30 Days Warfarin (warfarin 7.5 mg oral tablet) 1 tab(s) 7.5 Milligram By Mouth Daily for 7 Days Take as directed by coumadin clinic Clopidogrel 75 mg qd LV (left ventricular) mural thrombus 02/08/2024 Overview (02/08/2024): On Coumadin - goes to [facility] and Plavix [facility] Admission for NSTEMI echo revealed LV thrombus CTA of abdomen showed proximal abdominal aortic intramural thrombus with multiple tiny penetrating atherosclerotic ulcers throughout extending to the iliac bifurcations; no evidence of aneurism or dissection flab identified. will start on warfarin of DOAC given multiple thrombus Insomnia 06/26/2023 Primary hypertension 06/25/2023 Controlled type 2 diabetes m ellitus without complication, without long-term current use of insulin ([facility]) 06/25/2023 Other hyperlipidemia 06/25/2023 Diabetic polyneuropathy asso ciated with type 2 diabetes mellitus ([facility]) 06/25/2023 Resolved Problems Problem Noted Date Diagnosed Date Resolved Date Elevated serum creatinine 06/29/2023 Overview (02/08/2024): Sees Nephrology Dr. Isai Lomeli Encounters Date Type Department Care Team Description 02/14/2025 3:00 PM EDT Office Visit [address] [phone] Kwesi Skelton, PharmD Anticoagulation goal of INR 2 to 3 (Primary Dx); NSTEMI (non-ST elevated myocardial infarction) (HCC-CMS); LV (left ventricular) mural thrombus 01/16/2025 11:20 AM EST Office Visit [address] [phone] MD Controlled type 2 diabetes mellitus without complication, without long-term current use of insulin (HCC-CMS) (Primary Dx); Primary hypertension; Other hyperlipidemia; Diabetic polyneuropathy associated with type 2 diabetes mellitus (HCC-CMS) 01/13/2025 1:40 PM EST Office Visit [address] [phone] Kwesi Skelton, PharmD Type 2 diabetes mellitus with hyperglycemia, without long-term current use of insulin (HCC-CMS) (Primary Dx); Anticoagulation goal of INR 2 to 3; NSTEMI (non-ST elevated myocardial infarction) (HCC-CMS) 12/22/2024 2:40 PM EST Telemedicine Visit [address] [phone] Tanya Lazo NP Primary hypertension (Primary Dx); Controlled type 2 diabetes mellitus without complication, without long-term current use of insulin (HCC-CMS); NSTEMI (non-ST elevated myocardial infarction) (HCC-CMS); LV (left ventricular) mural thrombus; Anticoagulation goal of INR 2 to 3 12/19/2024 Interim Notes [address] [phone] Rudolph Ordoñez MA 12/16/2024 Interim Notes [address] [phone] Cappas, Brandi 12/16/2024 Interim Notes [address] [address] MD Multiple falls (Primary Dx) 12/15/2024 Interim Notes [address] [phone] Lulu Corley RN 12/15/2024 Interim Notes [address] [phone] Heavenly Maria from Last 3 Months Immunizations Immunization Administration Dates Next Due Hep B,adult,adjuvanted (HEPLISAV) 08/26/2023,08/2023 INFLUENZA, SEASONAL, INJECTABLE 07/13/2014 Moderna COVID-19 Vaccine, re d cap blue label, 12+ Primary Series 11/28/2021,03/20/2021,02/19/2021 PNEUMOCOCCAL CONJUGATE PCV 20 (Prevnar) 03/03/20 24 Pfizer COVID-19 (Comirnaty), Mrna, Lnp-s, Pf, Miguel-sucrose, 30 Mcg/0.3 Ml, 12yr+ 11/02/2023 Pfizer-BioNTSoundFocus COVID-19 Vac cine Bivalent, (RUEDA PFIZER-BIONTECH COVID-19 VACCINE BIVALENT, (RUEDA CAP 08/13/2022 TDAP 01/20/2020,08/13/2010 ZOSTER VACCINE, RECOMBINANT (SHINGRIX) ,06/26/2023 Social History Tobacco Use Types Packs/Day Years Used Date Smoking Tobacco: Every Day Cigarettes 0.5 1 Started: 02/14/2024; Last attempted to quit: 02/01/2024 Passive Smoke Exposure: Never Smokeless Tobacco: Never Comments:Smoking 10 cigarett es a day Alcohol Use Standard Drinks/Week Comments Not Currently 0 (1 standard drink = 0.6 oz pur e alcohol) Social Connections Answer Date Recorded Connectedness 1 10/18/2024 Financial Resource Strain Answer Date R ecorded Financial Resource Strain 1 2023 Stress Answer Date Recorded Stress 1 10/18/2024 Physical Activity Answer Date Recorded Physical Activity 0 03/31/2023 Food Insecurity Answer Date Recorded Food 1 10/18/2024 Transportation Needs Answer Date Record ed Transportation 1 10/18/2024 Housing Stability Answer Date Recorded Housing 1 10/18/2024 Safety and Environment Answer Date Noé rded Safety 0 03/31/2023 Utilities Answer Date Recorded Utilities 1 10/18/2024 Employment Answer Date Recorded Stress 0 08/04/2024 Sex and Gender Information Value Date Recorded Sex Assigned at Male 06/25/2023 6:52 AM PDT Legal Sex Male 11:36 AM PDT Gender Identity Male 06/25/2023 6:52 AM PDT Sexual Orientation Straight 06/25/2023 6: 52 AM PDT Last Filed Vital Signs Vital Sign Reading Time Taken Comments Blood Pressure 122/84 02/14/2025 3:10 PM EDT Pulse 66 02/14/2025 3:10 PM EDT Temperature 36.4 ??C (97.6 ??F) 02/14/2025 3:10 PM ED T Respiratory Rate 18 02/14/2025 3:10 PM EDT Oxygen Saturation 96% 02/14/2025 3:10 PM EDT Inhaled Oxygen Concentration - - Weight 81.6 kg (180 lb) 02/14/2025 3:10 PM EDT Height 175.3 cm (5' 9 ) 02/14/2025 3:10 PM EDT Body Mass Index 26.58 02/14/2025 3:10 PM EDT Plan of Treatment Upcoming Encounters Date Type Department Care Team (Late st Contact Info) Description 03/21/2025 3:00 PM EDT Office Visit [facility] [address] [place] [address] Kwesi Skelton, PharmD [address] [place] [address] Health Maintenance Due Date Last Done Comments Anxiety Screening [address] Colonography 2015 Colonoscopy 2015 Fecal DNA 2015 Flexible Sigmoidoscopy 2015 Colorectal Cancer Screening 06/24/2024 FIT/gFOBT 06/24/2024 06/24/2023 Retinopathy Screening 01/13/2025 01/13/2024 Urine Albumin Creatinine Rat io Screening 02/11/2025 02/12/2024, 02/05/2024, 06/18/2023 Diabetes HbA1c 04/12/2025 01/13/2025, 08/17, 05/17/2024, Additional history exists Depression Monitoring 04/18/2025 01/16/2025 , 09/09/2024, 06/02/2024, Additional history exists Lipid Screening 06/17/2025 06/17/2024, 02/14, 11/02/2023, Additional history exists Annual Preventive Care Visit 09/09/2025 09/09/2024 Serum Creatinine 09/09/2025 09/09/2024, 12/2023, 06/25/2023, Additional history exists Tobacco Cessation Counseling (#1) 09/13/2025 024, 05/17/2024 Diabetes Foot Exam 01/16/2026 01/16/2025, 11/02/2023 Imm-DTaP/Tdap/Td (3 - Td or Tdap) 01/19/2030 020, 08/13/2010 Imm-Influenza Discontinued 07/13/2014 HIV Screening Completed 06/25/2023 Hepatitis C Screening Completed 06/25/2023 Imm-Hepatitis B Completed 08/26/2023, 06/25/2023 Imm-Zoster, Recombinant Completed 08/26/2023, 06/26 [id number] Discontinued 11/02/2023, 07/18, 11/28/2021, Additional history exists Imm-Pneumococcal Completed 03/03/2024 Alcohol and Drug Screen Completed 01/17/20, 09/09/2024, 02/11/2024, Additional history exists Procedures Procedure Name Priority Date/Time Associated Diagnosis Comments INR COAGUCHEK XS (POCT) Routine 02/14/2025 3:11 PM EDT Anticoagulation goal of INR 2 to 3 GLYCOSYLATED (A1C) DEVICE (CLIA WAIVED) POCT Routine 01/13/2025 2:38 PM EST Type 2 diabetes mellitus with hyperglycemia, without long-term current use of insulin ([facility]) INR COAGUCHEK XS (POCT) Routine 01/13/2025 2:03 PM EST Anticoagulation goal of INR 2 to 3 GLUCOSE, BLOOD BY GLUCOSE MONITORING DEVICE (CLIA WAIVED)POCT Routine 01/13/2025 2:03 PM EST Type 2 diabetes mellitus with hyperglycemia, without long-term current use of insulin ([facility]) CARD SCANNED DOCUMENT 01/10/2025 3:00 AM EST REFERRAL SCANNED DOCUMENT 01/10/2025 3:00 AM EST REFERRAL SCANNED DOCUMENT 01/10/2025 3:00 AM EST CARD SCANNED DOCUMENT 12/26/2024 3:00 AM EST REFERRAL SCANNED DOCUMENT 12/26/2024 3:00 AM EST IMAGING SCANNED DOCUMENT 12/07/2024 3:00 AM EST IMAGING SCANNED DOCUMENT 12/07/2024 3:00 AM EST COMPREHENSIVE METABOLIC PANEL Routine 09/09/2024 9:27 AM EDT Routine general medical examination at a [facility] facility Primary hypertension Other hyperlipidemia Controlled type 2 diabetes mellitus without complication, without long-term current use of insulin ([facility]) Stage 3a chronic kidney disease ([facility]) LIPIDS W RFLX TO DIRECT LDL Routine 03/04/2024 9:16 AM EDT Other hyperlipidemia MICROALBUMIN/CREATININ E RATIO, URINE, RANDOM Routine 02/12/2024 1:38 PM EDT Controlled type 2 diabetes mellitus without complication, without long-term current use of insulin ([facility]) REFERRAL TO DIABETIC RETINAL EXAM Routine 01/13/2024 3:00 AM EST Controlled type 2 diabetes mellitus without complication, without long-term current use of insulin ([facility]) HIV 1/2 AG & AB W/RFLX (4TH GEN) Routine 06/25/2023 10:35 AM EDT Screen for STD (sexually transmitted disease) HEPATITIS C AB W/RFLX HCV RNA, QT, RT PCR Routine 06/25/2023 10:35 AM EDT Screen for STD (sexually transmitted disease) FECAL GLOBIN BY IMMUNOCHEMISTRY (FIT) Routine 06/24/2023 8:00 PM EDT Screen for colon cancer from Last 3 Months or Most Recently Relevant to Health Maintenance Results * INR COAGUCHEK XS (POCT) (02/14/2025 3:11 PM EDT) Only the most recent of2 resultswithin the time period is included. INR 3.0 2.0 - 3.5 Ratio [facility]- BACK OFFICE POCT Comment:36.4secs Blood Blood / Unknown 02/14/2025 3 :11 PM EDT Kwesi Hyman PharmD LAB - BLOOD D RAW Final Result [facility] BACK OFFICE POCT * (ABNORMAL) GLYCOSYLATED (A1C) DEVICE (CLIA WAIVED) POCT (01/13/2025 2:38 PM EST) HGB A1C 7.2(A) 4.2 - 6.5 % [facility] OFFICE POCT Capillary Blood Blood / Unknown 5 2:38 PM EST Kwesi Hyman PharmD LAB - BLOOD D RAW Final Result [facility] BACK OFFICE POCT * (ABNORMAL) GLUCOSE, BLOOD BY GLUCOSE MONITORING DEVICE (CLIA WAIVED)POCT (01/13/2025 2:03 PM EST) GLUCOSE 109(A) 70 - 100 mg/dL [facility] BACK OFFICE POCT Capillary Blood Blood / Unknown 5 2:03 PM EST Kwesi Leach Hyman PharmD LAB - BLOOD D RAW Final Result [facility] BACK OFFICE POCT * CARD SCANNED DOCUMENT (01/10/2025 3:00 AM EST) Only the most recent of2 resultswithin the time period is included. 01/10/2025 3:00 AM EST Result [facility] Mireya Mehta PA-C SCAN ECGS Final Result * REFERRAL SCANNED DOCUMENT (01/10/2025 3:00 AM EST) Only the most recent of3 resultswithin the time period is included. 01/10/2025 3:[address] MD SCAN REFERRAL Final Result * IMAGING SCANNED DOCUMENT (12/07/2024 3:00 AM EST) Only the most recent of2 resultswithin the time period is included. 12/07/2024 3:[address] MD SCAN IMAGING Final Result * (ABNORMAL) COMPREHENSIVE METABOLIC PANEL (09/09/2024 9:27 AM EDT) [facility] GLUCOSE 121 65 - 139 mg/dL [employer] [facility] Comment: ?Non-fasting reference interval UREA NITROGEN (BUN) 16 7 - 25 mg/dL [employer] [facility] CREATININE (blood) 1.32(H) 0.70 - 1.30 mg/dL [facility] EGFR 64 > OR = 60 mL/min/1. 73m2 [employer] [facility] BUN/CREATININE RATIO 12 6 - 22 (calc) [employer] [facility] SODIUM 140 135 - 146 mmol/L [employer] POTASSIUM 4.9 3.5 - 5.3 mmol/L [employer] [facility] CHLORIDE 103 98 - 110 mmol/L [employer] [facility] CARBON DIOXIDE 30 20 - 32 mmol/L [facility] CALCIUM 9.4 8.6 - 10.3 mg/dL [employer] [facility] PROTEIN, TOTAL 6.2 6.1 - 8.1 g/dL [facility] ALBUMIN 3.4(L) 3.6 - 5.1 g/dL [employer] [facility] GLOBULIN 2.8 1.9 - 3.7 g/dL (calc) [facility] ALBUMIN/GLOBULI N RATIO 1.2 1.0 - 2.5 (calc) [facility] [facility] BILIRUBIN, TOTAL 0.3 0.2 - 1.2 mg/dL [facility] ALKALINE PHOSPHATASE 68 35 - 144 U/L [employer] AST 23 10 - 35 U/L [employer] ALT 27 9 - 46 U/L [employer] [facility] Blood Blood / Unknown 09/09/2024 9 :27 AM EDT 09/09/2024 9:28 AM EDT Narrative [employer] [facility] - 09/10/2024 6:40 AM EDT FASTING:NO us Kendall Lane MD LAB - BLOOD DRAW Final Result [employer] [address] [address], [employer] [address] [address] * (ABNORMAL) LIPIDS W RFLX TO DIRECT LDL (03/04/2024 9:16 AM EDT) CHOLESTEROL, TOTAL 126 <200 mg/dL [facility] HDL CHOLESTEROL 41 > OR = 40 mg/dL [facility] TRIGLYCERIDES 162(H) <150 mg/dL [facility] LDL-CHOLESTEROL 61 99 mg/dL (calc) [facility] [facility] Comment: Reference range: <100 Desirable range <100 mg/dL for primary prevention; ?? <70 mg/dL for patients with CHD or diabetic patients with > or = 2 CHD risk factors. LDL-C is now calculated using the Archie calculation, which is a validated novel method providing better accuracy than the Friedewald equation in the estimation of LDL-C. Vicente SS et al. TY. 2013;310(19): 7320-3188 (http://education.[employer]/faq/PLD449) CHOL/HDLC RATIO 3.1 <5.0 (calc) [facility] NON-HDL CHOLESTEROL 85 <130 mg/dL (calc) [facility] Comment: For patients with diabetes plus 1 major ASCVD risk factor, treating to a non-HDL-C goal of <100 mg/dL (LDL-C of <70 mg/dL) is considered a therapeutic option. Blood Blood / Unknown 03/04/2024 9 :16 AM EDT 03/04/2024 9:18 AM EDT Narrative [employer] [facility] - 03/05/2024 6:30 AM EDT FASTING:YES Kendall Lane MD LAB - BLOOD DRAW Final Result Performing Organization Address City/[facility]/ZIP Co de Phone Number [employer] [address] [address], [facility] [address] [address] * MICROALBUMIN/CREATININE RATIO, URINE, RANDOM (02/12/2024 1:38 PM EDT) Pathologist [facility] CREATININE, RANDOM URINE 83 20 - 320 mg/dL [employer] [facility] MICROALBUMIN 1.2 mg/dL [employer] [facility] Comment: Reference Range Not established MICROALBUMIN/CREA TININE RATIO, RANDOM URINE 14 <30 mg/g creat [employer] [facility] Comment: The ADA defines abnormalities in albumin excretion as follows: Albuminuria Category ?Result (mg/g creatinine) Normal to Mildly increased ?? <30 Moderately increased ? 30-299 Severely increased ? > OR = 300 The ADA recommends that at least two of three specimens collected within a 3-6 month period be abnormal before considering a patient to be within a diagnostic category. Urine Urine specimen / Unknown 02/12/2024 1:38 PM EDT 02/12/2024 1:[address] us [address] MD LAB - NO BLOOD DRAW Final Resul t Performing Organization Address [facility] Co de Phone Number [employer] [address] [address], [facility] [address] [address] * REFERRAL TO DIABETIC RETINAL EXAM (01/13/2024 3:00 AM EST) 01/13/2024 3:[address] MD REFERRAL Edited Result - Final * HEPATITIS C AB W/RFLX HCV RNA, QT, RT PCR (06/25/2023 10:35 AM EDT) HEPATITIS C ANTIBODY NON-REACT FOREIGN NON-REACT FOREIGN [employer] [facility] Comment: HCV antibody was non-reactive. There is no laboratory evidence of HCV infection. In most cases, no further action is required. However, if recent HCV exposure is suspected, a test for HCV RNA (test code 17366) is suggested. For additional information please refer to http://education.[employer]/faq/KXN13b1 (This link is being provided for informational/ educational purposes only.) Blood Blood / Unknown 06/25/2023 1 0:35 AM EDT 06/25/2023 10:36 AM EDT Narrative [facility] - 06/26/2023 6:28 PM EDT FASTING:NO Kendall Lane MD LAB - BLOOD DRAW Edited Result - Final [facility] [address] [place] [id number], [employer] [address] [address] * HIV 1/2 AG & AB W/RFLX (4TH GEN) (06/25/2023 10:35 AM EDT) HIV AG/AB, 4TH GEN NON-REAC TIVE NON-REAC TIVE [employer] [facility] Comment: HIV-1 antigen and HIV-1/HIV-2 antibodies were not detected. There is no laboratory evidence of HIV infection. PLEASE NOTE: This information has been disclosed to you from records whose confidentiality may be protected by state law. ??If your state requires such protection, then the state law prohibits you from making any further disclosure of the information without the specific written consent of the person to whom it pertains, or as otherwise permitted by law. A general authorization for the release of medical or other information is NOT sufficient for this purpose. ?? For additional information please refer to http://education.[employer]/faq/RPG020 (This link is being provided for informational/ educational purposes only.) The performance of this assay has not been clinically validated in patients less than 2 years old. Blood Blood / Unknown 06/25/2023 1 0:35 AM EDT 06/25/2023 10:36 AM EDT Narrative [employer] [facility] [employer] - 06/26/2023 6:28 PM EDT FASTING:NO Kendall Lane MD LAB - BLOOD DRAW Final Result Performing Organization Address [facility] de Phone Number [facility] [address] [place] [address], [facility] [address] [phone] * FECAL GLOBIN BY IMMUNOCHEMISTRY (FIT) (06/24/2023 8:00 PM EDT) FECAL GLOBIN BY IMMUNOCHEMISTRY See Note [facility] [employer] Comment: ??FECAL GLOBIN BY IMMUNOCHEMISTRY ?Micro Number: ?[id number] ??Test Status: ? Final ??Specimen Source: ?? Insure (tm) fobt test card ??Specimen Quality: ??Adequate ??Fecal Globin: ?Not Detected Stool Stool specimen / Unknown 06/24/2023 8:00 PM EDT 06/30/2023 3:[address] MD LAB - NO BLOOD DRAW Final Resul t Performing Organization Address [facility]/[employer] de Phone Number [facility] [address] [place] [address], [facility] [address] [phone] from Last 3 Months or Most Recently Relevant to Health Maintenance Insurance [address] [employer] Care Teams Textile Converter Relationship Specialty Start Date End Date Kendall Lane MD [address] [place] [address] PCP - General Internal Medicine 06/25/23
--- OUTSIDE RECORDS SUMMARY | 2025-02-24 08:35 | XMS_ITS | Encounter Summary ---
Author Organization [facility] Address [address] [place] [address] Phone Care Team Providers Care Pre School Manager Name Role Phone Kendall Lane MD Primary Care Provider [phone] Encounter Details Date Type Department Care Team (Late st Contact Info) Description 04/03/2021 Orders Only [facility] [address] [place] [phone] Sonia Shen [place] Chronic kidney disease, not otherwise specified (Primary Dx) Social History Tobacco Use Types Packs/Day Years [...] on file Sexual Orientation Not on file COVID-19 Exposure Response Date Recorded In the last month, have you been in contact with someone who was confirmed or suspected to have Coronavirus / COVID-19? No / Unsure 04/03/2021 1:11 PM EDT documented as of this encounter Plan of Treatment Scheduled Orders Name Type Priority Associated Diagnoses Orde r Schedule Renal function panel Lab Routine Chronic kidney disease, not otherwise specified Expected: 04/03/2021, Expires: 05/04/2022 CBC and differential Lab Routine Chronic kidney disease, not otherwise specified Expected: 04/03/2021, Expires: 05/04/2022 Urinalysis, Complete w/reflex to Culture Lab Routine Chronic kidney disease, not otherwise specified Expected: 04/03/2021, Expires: 05/04/2022 documented as of this encounter Visit Diagnoses Diagnosis Chronic kidney disease, not otherwise specified- Primary documented in this encounter Care Teams Pre School Manager Relationship Specialty Start Date End Date Kendall Lane MD [address] [place] [address] PCP - General Internal Medicine 02/10/24 documented as of this encounter
--- OUTSIDE RECORDS SUMMARY | 2025-02-24 08:35 | XMS_ITS | Encounter Summary ---
Author Organization [facility] Address [address] [place] [address] Phone Care Team Providers Care Bleach Packer Name Role Phone Kendall Lane MD Primary Care Provider [phone] Reason for Visit * Reason Comments Med Refill Encounter Details Date Type Department Care Team ([facility] st Contact Info) Description 01/15/2024 Refill [facility] [address] [place] [phone] Branden Lomeli MD [address] [place] [address], [address] [address] Social History Tobacco Use Types Packs/Day Years [...] on filedocumented in this encounter Care Teams Bleach Packer Relationship Specialty Start Date End Date Kendall Lane MD [address] [place] [address] PCP - General Internal Medicine 02/10/24 documented as of this encounter
--- OUTSIDE RECORDS SUMMARY | 2025-02-24 08:35 | XMS_ITS | Clinical Summary ---
Author Organization [facility] Address [address] [place] [address] Care Team Providers Care Residential Electrician Name Role Phone Branden Lomeli MD Primary Care Provider [phone] Allergies No known active allergies Medications Medication Sig Dispensed Refills Start Date End Date Status amLODIPine (NORVASC) tablet 10 mg Take 10 mg by mouth daily. 0 Active Canagliflozin (INVOKANA PO) Take by mouth. 0 Active METFORMIN HCL PO Take 500 mg by mouth 2 (two) times a day. 0 Active zolpidem (AMBIEN) 5 MG tablet Take 10 mg by mouth every night at bedtime as needed for sleep. 0 Active montelukast (SINGULAIR) 10 MG tablet Take 10 mg by mouth every night at bedtime. 0 Active celecoxib (CeleBREX) 100 MG capsuleIndications:Acu te Pain Take 100 mg by mouth 2 (two) times a day. 0 Active valACYclovir (VALTREX) 1000 MG tablet Take 1,000 mg by mouth daily. 0 Active methocarbamol (ROBAXIN) 500 MG tablet Take 500 mg by mouth 2 (two) times a day. 0 Active gabapentin (NEURONTIN) 300 MG capsule Take 300 mg by mouth 2 (two) times a day. 0 Active busPIRone (BUSPAR) 5 MG tablet Take 5 mg by mouth 3 (three) times a day. 0 Active predniSONE (DELTASONE) tablet 20 mg Take 20 mg by mouth daily. 0 Active Social History Tobacco Use Types Packs/Day Years Used Date Smoking Tobacco: Every Day Cigarettes 0.5 Smokeless Tobacco: Never Alcohol Use Standard Drinks/Week Comments Yes 0 (1 standard drink = 0.6 oz pur e alcohol) 12 pack and 1 pint Sex and Gender Information Value Date Recorded Sex Assigned at Male 01/16/2021 8:01 PM EST Gender Identity Male 01/16/2021 8:01 PM EST Sexual Orientation Not on file Last Filed Vital Signs Vital Sign Reading Time Taken Comments Blood Pressure 145/98 01/16/2021 8:56 PM EST Pulse 73 01/16/2021 8:56 PM EST Temperature 36.2 ??C (97.1 ??F) 01/16/2021 8:56 PM ES T Respiratory Rate 18 01/16/2021 8:56 PM EST Oxygen Saturation 99% 01/16/2021 8:56 PM EST Inhaled Oxygen Concentration - - Weight 82.1 kg (181 lb) 01/16/2021 7:44 PM EST Height 177.8 cm (5' 10 ) 01/16/2021 7:44 PM EST Body Mass Index 25.97 01/16/2021 7:44 PM EST Plan of Treatment Not on file Care Teams Residential Electrician Relationship Specialty Start Date End Date Branden Lomeli MD [address] [facility] [place] [address] PCP - General Nephrology 01/16/21
[2025-02-24 10:58] LABS: Prostate Specific Antigen 2.46 ng/mL (<0.05-4.0)
== END 2025-02-24 08:31 | disposition home or self-care (01) ==
LOC: HO.HMGCLDS 08:30
PROVIDERS: Visit Provider Urology
DX: N52.9 Male erectile dysfunction, unspecified (principal)
CPT/HCPCS: 36415; 84153

== ENCOUNTER 2025-03-14 07:50 | Outpatient (AMB) | payer MEDICAID, SELFPAY ==
--- OUTSIDE RECORDS SUMMARY | 2025-03-14 07:54 | XMS_ITS | Clinical Summary ---
Author Organization [facility] Address [address] [facility] [address] [place] [address] Phone Care Team Providers Care Shop And Alteration Tailor Name Role Phone Kendall Lane MD Primary Care Provider [phone] Allergies Active Allergy Reactions Criticality Noted Date Comments Copper Chloride Other (see comments) 04/04/2014 Soap Anaphylaxis,Other (s ee comments) High 04/04/2014 Aan dishwashing detergant Medications Alcohol Swabs ([facility]) [...] unspecified, uncomplicated 03/31/20 16 Overview (09/20/2021): Seeing [facility] in [place], [place] 03/2016 Chronic kidney disease stage 3 04/18/2015 Overview (04/03/2021): Renal (09/06/17): resolving herson cause unkown, repeat labs. Dr Tatum Secondary to HERSON Hospitalized at [facility] 03/2015 with creatinine 10 - thought 2/2 rhabdo 2/2 cocaine abuse, NSAIDs, uncontrolled HTN Spot spep showed monoclonal IgG Lambda - 24h urine pending [facility] with [facility] Most recent creatinine 1.7 Eczema 09/05/2014 Pain in left knee 06/08/2014 Overview (09/20/2021): [facility] - 06/06/14 - Kenalog injection; followup [...] Influenza Vaccine (Season Ended) 2025 Pneumococcal Vaccine: 50+ Years Completed Pneumococcal Vaccine: Peds ( 0 to 5 Years) and At-Risk Patients (6 to 49 Years) Discontinued 03/03/2024 Procedures Procedure Name Priority Date/Time Associated [...] PM EDT Performed at: ??01 - [facility] [address] ??[id number] Hand Alterations Tailor: Bianca Chin MD, Phone: ??[phone] us Branden Lomeli MD LAB BLOOD ORDERABLES Final Re sult [facility] from Last 3 Months or Most Recently Relevant to Health Maintenance Insurance Medicaid [place] Care Teams Shop And Alteration Tailor Relationship Specialty Start Date End Date Kendall Lane MD [address] [place] [address] PCP - General Internal Medicine 02/10/24
--- OUTSIDE RECORDS SUMMARY | 2025-03-14 07:54 | XMS_ITS | Encounter Summary ---
Author Organization [facility] [place] [address] Care Team Providers Care Airplane Rigger Name Role Phone Kendall Lane MD Primary Care Provider [phone] Reason for Visit * Reason Onset Date Comments Procedure 02/14/2025 Primary ICD Encounter Details Date Type Department Care Team ([facility] st Contact Info) Description 02/14/2025 Telephone [facility] - [facility] [address] [facility] [address] [place] [address] Kade Zhang MD 300 [facility] [address] [place] [address] Procedure (Primary ICD ) Social History Tobacco [...] as of this encounter Progress Notes * Alexa Yang - 03/07/2025 4:00 PM EDT Followed up with Dr. Zhang about this patient. Awaiting response * Alexa Yang - 03/03/2025 4:32 PM EDT I have order awating for Dr. Zhang I did notify him previously. * Driss Feldman MA - 03/02/2025 3:52 PM EDT I called patient, informed him Dr Zhang was not in the office last week, which was a cause for delay. I informed patient I will ask for a provider to review MRI and I will get back to him once I haveresults available. * Driss Feldman MA - 03/02/2025 3:46 PM EDT Patient seen Dr Zhang 01.10.25 Cardiac MRI completed 02.06.25, scanned into chart. Alexa, do you have orders on this gentleman? Rosalia, would you be able to review MrI results? Would you prefer I reach out to Dr Zhang? * Eliot Isabel - 02/22/2025 3:28 PM [...] next steps. Edmundo can be reached at [phone] if there are any questions. * William [...] documented in this encounter Plan of Treatment Upcoming Encounters Date Type Department Care Team (Late st Contact Info) Description 03/29/2025 1:45 PM EDT Office Visit [facility] - [facility] [address] [facility] [address] [place] [phone] Kade Zhang MD [address] [place] [address] documented as of this encounter Visit Diagnoses Not on filedocumented in this encounter Care Teams Airplane Rigger Relationship Specialty Start Date End Date Kendall Lane MD [address] [place] [address] PCP - General 02/25/24 documented as of this encounter
--- OUTSIDE RECORDS SUMMARY | 2025-03-14 07:54 | XMS_ITS | Encounter Summary ---
Author Organization [facility] Address [address] [place] [address] Phone Care Team Providers Care Project Construction Manager Name Role Phone Kendall Lane MD Primary Care Provider [phone] Reason for Visit * Reason Comments Med Refill Encounter Details Date Type Department Care Team ([facility] st Contact Info) Description 01/07/2024 Refill [facility] [address] [place] [phone] Branden Lomeli MD [address] [place] [address], [address] [address] Social History Tobacco Use Types Packs/Day Years [...] on filedocumented in this encounter Care Teams Project Construction Manager Relationship Specialty Start Date End Date Kendall Lane MD [address] [place] [address] PCP - General Internal Medicine 02/10/24 documented as of this encounter
--- OUTSIDE RECORDS SUMMARY | 2025-03-14 07:54 | XMS_ITS | Encounter Summary ---
Author Organization [facility] Address [address] [place] [address] Care Team Providers Care Marshmallow Runner Name Role Phone Kendall Lane MD Primary Care Provider [phone] Reason for Visit * Reason Onset Date Comments Results 02/13/2025 Encounter Details Date Type Department Care Team ([facility] st Contact Info) Description 02/13/[address] [facility] - [facility] [address] [facility] [address] [place] [address] Kade Bautista MD 300 [facility] [address] [place] [address] Results Social History Tobacco Use Types Packs/Day [...] encounter Progress Notes * LEO Cole - 03/09/2025 4:45 PM EDT Pt has follow up appt with dr bautista to address device , mri and sxs * William Webb - 03/07/2025 9:29 AM EDT Patient calling in regards to wanting his Cardiac Mri results from 02/06/25 and would like a call back as soon as Dr Bautista is available.. * Maryanne Lou - 03/06/2025 10:03 AM EDT Patient is calling for an update on his results. * LEO Cole - 02/14/2025 4:21 PM EDT Results given to Dr Bautista * Rita Flores MA - 02/13/2025 4:21 [...] any questions Edmundo can be reached at [phone]. Please call him when his results come back. documented in this encounter Plan of Treatment Upcoming Encounters Date Type Department Care Team (Late st Contact Info) Description 03/29/2025 1:45 PM EDT Office Visit [facility] - [address] [place] [address] Kade Bautista MD [address] [place] [address] documented as of this encounter Visit Diagnoses Not on filedocumented in this encounter Care Teams Marshmallow Runner Relationship Specialty Start Date End Date Kendall Lane MD [address] [place] [address] PCP - General 02/25/24 documented as of this encounter
--- OUTSIDE RECORDS SUMMARY | 2025-03-14 07:54 | XMS_ITS | Encounter Summary ---
Author Organization [facility] Address [address] [place] [address] Phone Care Team Providers Care University Intern Name Role Phone Kendall Lane MD Primary Care Provider [phone] Reason for Visit * Reason Comments Med Refill Encounter Details Date Type Department Care Team ([facility] st Contact Info) Description 01/15/2024 Refill [facility] [address] [place] [phone] Branden Lomeli MD [address] [place] [address], [address] [address] Social History Tobacco Use Types Packs/Day Years [...] on filedocumented in this encounter Care Teams University Intern Relationship Specialty Start Date End Date Kendall Lane MD [address] [address] PCP - General Internal Medicine 02/10/24 documented as of this encounter
--- OUTSIDE RECORDS SUMMARY | 2025-03-14 07:54 | XMS_ITS | Clinical Summary ---
Author Organization [address] [place] [address] Address [address] [place] [address] Phone Care Team Providers Care Head Of History Name Role Phone Kendall Lane MD Primary Care Provider [phone] Allergies Active Allergy Reactions Criticality Noted Date Comments Nickel 04/04/2014 Other Reaction(s): Rash/Dermatitis Sacubitril-Valsartan Diarrhea 07/05/2024 Soap Anaphylaxis,Hives High 04/04/2014 Ana dishwashing detergant Medications clopidogreL (PLAVIX) 75 mg tablet Take 1 Tablet by mouth daily. Do not stop for any reason without calling [phone]. 02/25/2024 Active cyclobenzaprine (FLEXERIL) 10 mg tablet [...] by mouth daily for 180 days. 09/15/2024 Active traZODone (DESYREL) 50 mg tablet 1 Tablet as needed. 12/20/2023 Active valACYclovir (VALTREX) 1 gram tablet Take 1 Tablet by mouth as needed. Active valsartan (DIOVAN) 40 mg tablet Take 1 Tablet by mouth daily. 07/05/2024 Active warfarin (COUMADIN) 7.5 mg tablet Take 1 Tablet by mouth daily. Pt is followed by [facility]. 02/09/2024 Active clonazePAM (KlonoPIN) 1 mg tablet Take 1 tablet (1 mg total) by mouth 2 (two) times a day. Active Active Problems Problem Noted Date Diagnosed Date Tobacco use 12/26/2024 Assessment & Plan (12/26/2024 3:38 PM EST): - Advised to quit smoking - Prefers to quit cold turkey without cessation aids Coronary artery disease invo lving menominee coronary artery of menominee heart without angina pectoris 02/25/2024 Overview (10/11/2024): [...] LVEF 25-30% at the time of his OK - Repeat echo most recently-presumably on maximally [...] Coumadin as prescribed and followed by the [facility] with a goal INR 2-3. Will recheck [...] disease, without long-term current use of insulin ([facility] V24, [facility] V28) 12/31/2022 Recurrent genital herpes simplex 09/21/2018 [...] Overview (10/11/2024): Accidental heroin overdose 08/16/21 Seeing [facility] in [place], [place] 03/2016 CKD (chronic kidney disease) stage 3, GFR 30-59 ml/min ([facility] V24, [facility] V28) 04/18/2015 Overview (10/11/2024): Renal (09/06/17): resolving juan cause unkown, repeat labs. Dr Tatum Secondary to JUAN Hospitalized at [facility] 03/2015 with creatinine 10 - thought 2/2 rhabdo 2/2 cocaine abuse, NSAIDs, uncontrolled HTN Spot spep showed monoclonal IgG Lambda - 24h urine pending Following with renal and trasplant associates Most recent creatinine 1.7 Eczema 09/05/2014 Left knee pain 06/08/2014 Overview (10/11/2024): [facility] - 06/06/14 - Kenalog injection; followup as needed Shoulder bursitis 01/12/2013 Generalized osteoarthrosis, involving multiple s ites 12/07/2012 Chronic low back pain 08/13/2010 Overview (10/11/2024): MRI 10/2012 discogenic degenerative changes at the L4-5 and L5-S1 levels, with diffuse bulging of the L4-5 disc and a COPD (chronic obstructive pu lmonary disease) ([facility] V24, [facility] V28) 08/13/2010 Overview (10/11/2024): IMPRESSION: Moderate obstructive ventilatory defect with reversibility to inhaled bronchodilator and with a borderline reduced DLCO. These results are most consistent with, but not diagnostic of, airways disease like asthma or COPD with a reversible component and some early emphysema. 02 saturation, resting on room air, was normal at 97%. Encounters Date Type Department Care Team Description 03/08/2025 Telephone [facility] [address] [place] [address] Kade Lunsford MD Results; Defibrillator 03/07/2025 8:14 PM EDT - 03/07/2025 11:55 PM EDT Emergency [facility] Emergency [address] [place] [id number] Discharge Disposition: Left Against Medical Advice 02/14/2025 Telephone [facility] [address] [place] [address] Kade Lunsford MD Procedure (Primary ICD ) 02/13/2025 Telephone [facility] [address] [place] [address] Kade Lunsford MD Results 01/19/2025 Telephone [facility] [address] [place] [address] Kade Lunsford MD Appointment (Cardiac MRI) 01/10/2025 3:25 PM EST Consult [facility] [address] [place] [address] Kade Lunsford MD Coronary artery disease involving menominee coronary artery of menominee heart without angina pectoris (Primary Dx); Ischemic cardiomyopathy 12/26/2024 11:20 AM EST Office Visit [facility] [address] [place] [address] Joanna Rosen MD Coronary artery disease involving menominee coronary artery of menominee heart without angina pectoris (Primary Dx); Ischemic cardiomyopathy; Left ventricular apical thrombus; Tobacco use from Last 3 Months Immunizations Name Administration [...] pain COPD (chronic obstructive pu lmonary disease) ([facility] V24, [facility] V28) 08/13/2010 DX:COPD (chronic o bstructive pulmonary disease) ([facility]) Smoking DX:Smoking Atopic dermatitis DX:Atopic derm atitis Anxiety 02/15/2018 DX:Anxiety Microscopic hematuria 04/29/2018 DX:Microsc opic hematuria Recurrent genital herpes simplex 09/21/2018 DX:Recurrent genital herpes simplex Type 2 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, without long-term current use of insulin ([facility] V24, [facility] V28) 12/31/2022 DX:Type 2 diabetes mellitus with chronic kidney disease, without long-term current use of insulin ([facility]) Family History Medical History Relation Name Comments [...] Sign Reading Time Taken Comments Blood Pressure 105/82 03/07/2025 8:18 PM EDT Pulse 82 03/07/2025 8:18 PM EDT Temperature 36.9 ??C (98.4 ??F) 03/07/2025 8:18 PM ED T Respiratory Rate 18 03/07/2025 8:18 PM EDT Oxygen Saturation 100% 03/07/2025 8:18 PM EDT Inhaled Oxygen Concentration - - Weight 78 kg (172 lb) 03/07/2025 8:18 PM EDT Height 175.3 cm (5' 9 ) 03/07/2025 8:18 PM EDT Body Mass Index 25.4 03/07/2025 8:18 PM EDT Plan of Treatment Upcoming Encounters Date Type Department Care Team (Late st Contact Info) Description 03/29/2025 1:45 PM EDT Office Visit [facility] [address] [facility] [address] [place] [address] Kade Lunsford MD [address] [facility] [address] [place] [address] Health Maintenance Due Date Last Done Comments [...] Vaccine (Season Ended) 2025 07/13/2014 Depression Screening 01/16/2026 01/16/2025 Diabetes: Annual GFR (Glomerular Filtration Rate) 03/07/2026 03/07/2025, 09/09/2024, 06/17/2024, Additional history exists Hypertension/CHF/CAD Annual BMP Blood Test 03/07/2026 03/07/2025, 09/09/2024, 06/17/2024, Additional history exists Cholesterol Screening (Lipid Panel) 06/17/2029 06/17/2024, 06/17/2024, 03/04/2024, Additional history exists DTaP,Tdap,and Td Vaccines (3 - Td or Tdap) 01/19/2030 01/20/2020, 08/13/2010 HIV Screening Completed 04/27/2018 Hepatitis C Screening Completed 06/25/2023 Hepatitis B Vaccines Completed 08/26/2023, 06/25/20 Zoster Vaccines Completed 08/26/2023, 06/26/2023 Pneumococcal Vaccine: [...] Name Priority Date/Time Associated Diagnosis Comments ECG ANNOTATED 03/08/2025 ECG 12-LEAD STAT 03/07/2025 9:55 PM EDT TROPONIN I HIGH SENSITIVITY STAT 03/07/2025 9:52 PM EDT XR CHEST 2 VIEWS STAT 03/07/2025 8:34 PM EDT CBC WITH AUTO DIFFERENTIAL STAT 03/07/2025 8:26 PM EDT B-TYPE NATRIURETIC PEPTIDE STAT 03/07/2025 8:26 PM EDT MAGNESIUM STAT 03/07/2025 8:26 PM EDT LIPASE STAT 03/07/2025 8:26 PM EDT COMPREHENSIVE METABOLIC PANEL STAT 03/07/2025 8:26 PM EDT CBC AND DIFFERENTIAL STAT 03/07/2025 8:26 PM EDT TROPONIN I HIGH SENSITIVITY STAT 03/07/2025 8:26 PM EDT ECG 12-LEAD STAT 03/07/2025 8:21 PM EDT ECG 12-LEAD Routine 01/10/2025 3:32 PM EST Ischemic cardiomyopathy Coronary artery disease involving menominee coronary artery of menominee heart without angina pectoris ECG 12-LEAD Routine 12/26/2024 11:14 AM EST Coronary artery disease involving menominee coronary artery of menominee heart without angina pectoris LIPID PANEL Routine 06/17/2024 HM HIV SCREENING Routine 04/27/2018 HEMOGLOBIN A1C Routine 08/06/2015 from Last 3 Months or Most Recently Relevant to Health Maintenance Results * ECG-Annotated (03/08/2025) us Provider Onbase MD ECG ORDERABLES Final Result * ECG 12 lead (03/07/2025 9:55 PM EDT) Only the most recent of4 resultswithin the time period is included. Pathologist [facility] Ventricular Rate ECG 71 BPM GEMUSE Atrial Rate 71 BPM GEMUSE P-R Interval 126 ms GEMUSE QRS Duration 92 ms GEMUSE Q-T Interval 408 ms GEMUSE QTc 443 ms GEMUSE P Wave [place] 74 degrees GEMUSE R [place] -60 degrees GEMUSE T [place] 75 degrees GEMUSE ECG Interpretation Normal sinus rhythm Left anterior fascicular block Inferior infarct (cited on or before 01-FEB-2024) When compared with ECG of 07-MAR-2025 20:21, (unconfirmed) No significant change was found Confirmed by GURDEEP LUNSFORD ([id number]) on 03/08/2025 8:47:00 PM GEMUSE 03/07/2025 9:55 PM EDT 03/08/2025 8:47 PM EDT us Armond Boland MD ECG ORDERABLES Final Resul t Performing Organization Address [facility] de Phone Number GEMUSE * Troponin I high sensitivity (03/07/2025 9:52 PM EDT) Only the most recent of2 resultswithin the time period is included. [facility] High Sensitivity Troponin I 28 <=79 ng/L LAB CHEMISTRY METHOD 03/07/2025 10:50 PM EDT [facility] Blood Venous blood specimen / Unknown Venipuncture / Unknown 03/07/2025 9:52 PM EDT 03/07/2025 10:03 PM EDT Narrative [facility] - 03/07/2025 10:50 PM EDT High levels of biotin in samples may falsely decrease hsTroponin values. ??Use caution when interpreting hsTroponin results in patients taking biotin who exhibit renal impairment (eGFR <60) or in patients taking more than 20 mg/day of biotin. us Armond Boland MD LAB BLOOD ORDERABLES Final Result Performing Organization Address [facility]/ZIP Co de Phone Number [facility] [address] [place] [address], * XR Chest 2 Views (03/07/2025 8:34 PM EDT) Anatomical Region Laterality Modality Body Radiographic Patti ging 03/08/2025 7:54 AM EDT Impressions 03/08/2025 7:56 AM EDT No acute pulmonary disease. No change since the prior study performed 01/31/2024. Code 28174 -------- FINAL REPORT -------- Dictated By: Roberth Almanzar Dictated Date: 03/08/2025 07:54 ET Assigned Physician: Roberth Almanzar Reviewed and Electronically Signed By: Roberth Almanzar Signed Date: 03/08/2025 07:56 ET Workstation ID: [id number] Transcribed By: Self Edit Transcribed Date: 03/08/2025 07:54 ET Narrative 03/08/2025 7:56 AM EDT HISTORY: The patient is a 54-year-old male with chest pain. FINDINGS: PA and lateral radiographs of the chest demonstrate mild degenerative changes of the thoracic spine as also seen on the prior study performed 02/10/2024. The cardiac and mediastinal contours are within normal limits. The lungs and costophrenic angles are clear. Procedure Note Roberth Almanzar MD - 03/08/2025 HISTORY: The patient is a 54-year-old male with chest pain. FINDINGS: PA and lateral radiographs of the chest demonstrate milddegenerative changes of the thoracic spine as also seen on the prior studyperformed 02/10/2024. The cardiac and mediastinal contours are withinnormal limits. The lungs and costophrenic angles are clear. IMPRESSION: No acute pulmonary disease. No change since the prior study performed01/31/2024. Code 05633 -------- FINAL REPORT -------- Dictated By: Roberth Almanzar Dictated Date: 03/08/2025 07:54 ET Assigned Physician: Roberth Almanzar Reviewed and Electronically Signed By: Roberth Almanzar Signed Date: 03/08/2025 07:56 ET Workstation ID: [id number] Transcribed By: Self Edit Transcribed Date: 03/08/2025 07:54 ET us Armond Boland MD IMG XR PROCEDURES Final Res ult * (ABNORMAL) CBC auto differential (03/07/2025 8:26 PM EDT) WBC 7.6 4.8 - 10.8 K/mcL LAB HEMETOLOGY METHOD 03/07/2025 9:16 PM EDT [facility] RBC 5.90(H) 4.50 - 5.50 M/mcL LAB HEMETOLOGY METHOD 03/07/2025 9:16 PM EDT [facility] Hemoglobin 15.8 13.5 - 17.5 g/dL LAB HEMETOLOGY METHOD 03/07/2025 9:16 PM EDT [facility] Hematocrit 49.4 42.0 - 54.0 % LAB HEMETOLOGY METHOD 03/07/2025 9:16 PM EDT [facility] MCV 84.4 79.0 - 98.0 FL LAB HEMETOLOGY METHOD 03/07/2025 9:16 PM EDT [facility] MCH 27.0 27.0 - 32.0 pcg LAB HEMETOLOGY METHOD 03/07/2025 9:16 PM EDT [facility] MCHC 32.0 32.0 - 37.0 g/dL LAB HEMETOLOGY METHOD 03/07/2025 9:16 PM EDT [facility] RDW 18.2(H) 11.0 - 15.0 % LAB HEMETOLOGY METHOD 03/07/2025 9:16 PM EDT [facility] Platelets 179 130 - 400 K/mcL LAB HEMETOLOGY METHOD 03/07/2025 9:16 PM EDT [facility] MPV 11.9(H) 7.0 - 11.0 FL LAB HEMETOLOGY METHOD 03/07/2025 9:16 PM EDT [facility] NRBC 0.0 <1.0 % LAB [facility]OLOGY [facility] NR[facility] Absolute 0.00 <0.10 K/mcL LAB HEMETOLOGY METHOD 03/07/2025 9:16 PM [facility] Neutrophils Relative 56.8 % LAB HEMETOLOGY METHOD 03/07/2025 9:16 PM [facility] Lymphocytes Relative 28.3 % LAB HEMETOLOGY METHOD [facility]/07[facility] Monocytes Relative 8.2 % LAB HEMETOLOGY METHOD 03/07/2025 9:16 PM [facility] Eosinophils Relative 5.9 % LAB HEMETOLOGY METHOD 03/07/2025 9:16 PM [facility] Basophils Relative 0.4 % LAB HEMETOLOGY METHOD 03/07/2025 9:16 PM [facility] Immature Granulocytes Relative 0.4 % LAB HEMETOLOGY METHOD 03/07/2025 9:16 PM [facility] Neutrophils Absolute 4.32 1.50 - 7.00 K/mcL LAB HEMETOLOGY METHOD 03/07/2025 9:16 PM [facility] Lymphocytes Absolute 2.15 1.00 - 5.00 K/mcL LAB HEMETOLOGY METHOD 03/07[facility]25 [facility] Monocytes Absolute 0.62 0.20 - 1.00 K/mcL LAB HEMETOLOGY METHOD 03/07/2025 9:16 PM [facility] Eosinophils Absolute 0.45 0.00 - 0.50 K/mcL LAB HEMETOLOGY METHOD 03/07/2025 9:16 PM [facility] Basophils Absolute 0.03 0.00 - 0.20 K/mcL LAB HEMETOLOGY METHOD 03/07/2025 9:16 PM EDT [facility] Immature Granulocytes Absolute 0.03 0.00 - 0.03 K/[facility] LAB HEMETOLOGY METHOD 03/07/2025 9:16 PM EDT [facility] Blood Venous blood specimen / Unknown Venipuncture / Unknown 03/07/2025 8:26 PM EDT 03/07/2025 8:54 PM EDT Armond Boland MD LAB BLOOD ORDERABLES Final Result [facility] [address] [place] [address], [place] [phone] * B-type natriuretic peptide (03/07/2025 8:26 PM EDT) BNP 89 <=100 pcg/mL LAB CHEMISTRY METHOD 03/07/2025 9:29 PM EDT [facility] Blood Venous blood specimen / Unknown Venipuncture / Unknown 03/07/2025 8:26 PM EDT 03/07/2025 8:54 PM EDT Armond Boland MD LAB BLOOD ORDERABLES Final Result [facility] [address] [place] [address], [place] [phone] * Magnesium (03/07/2025 8:26 PM EDT) Magnesium 2.2 1.9 - 2.6 mg/dL LAB CHEMISTRY METHOD 03/07/2025 9:32 PM EDT [facility] Blood Venous blood specimen / Unknown Venipuncture / Unknown 03/07/2025 8:26 PM EDT 03/07/2025 8:54 PM EDT Armond Boland MD LAB BLOOD ORDERABLES Final Result Performing Organization Address [facility]/ZIP Co de Phone Number [facility] [address] [place] [address], [place] [phone] * Lipase (03/07/2025 8:26 PM EDT) Pathologist [facility] Lipase 36 13 - 75 unit/L LAB CHEMISTRY METHOD 03/07/2025 9:32 PM EDT [facility] Blood Venous blood specimen / Unknown Venipuncture / Unknown 03/07/2025 8:26 PM EDT 03/07/2025 8:54 PM EDT Armond Boland MD LAB BLOOD ORDERABLES Final Result Performing Organization Address [facility]/ZIP Co de Phone Number [facility] [address] [place] [address], [place] [phone] * (ABNORMAL) Comprehensive metabolic panel (03/07/2025 8:26 PM EDT) [facility] Sodium 137 133 - 145 mmol/L LAB CHEMISTRY METHOD 03/07/2025 9:32 PM [facility] Potassium 4.6 3.5 - 5.5 mmol/L LAB CHEMISTRY METHOD 03/07/2025 9:32 PM [facility] Chloride 103 96 - 110 mmol/L LAB CHEMISTRY METHOD 03/07/2025 9:32 PM [facility] CO2 29 21 - 32 mmol/L LAB CHEMISTRY METHOD 03/07/2025 9:32 PM [facility] Anion Gap 5 3 - 11 LAB CHEMISTRY METHOD 03/07/2025 9:32 PM [facility] Glucose 89 70 - 100 mg/dL LAB CHEMISTRY METHOD 03/07/2025 9:32 PM [facility] BUN 20 5 - 25 mg/dL LAB CHEMISTRY METHOD 03/07/2025 9:32 PM [facility] Creatinine 1.59(H) 0.70 - 1.30 mg/dL LAB CHEMISTRY METHOD 03/07/2025 9:32 PM [facility] eGFR 51(L) >=60 mL/min/1. 73m2 LAB CHEMISTRY METHOD 03/07/2025 9:32 PM [facility] Comment:Calculation based on the??Chronic Kidney Disease Epidemiology Collaboration (CKD-EPI) equation refit??without adjustment for race. BUN/Creatinine Ratio 12.6 LAB CHEMISTRY METHOD 03/07/2025 9:32 PM [facility] Calcium 8.7 8.5 - 10.5 mg/dL LAB CHEMISTRY METHOD 03/07/2025 9:32 PM [facility] AST (SGOT) 32 10 - 42 unit/L LAB CHEMISTRY METHOD 03/07/2025 9:32 PM [facility] ALT (SGPT) 44 10 - 60 unit/L LAB CHEMISTRY METHOD 03/07/2025 9:32 PM [facility] Alkaline Phosphatase 92 42 - 121 unit/L LAB CHEMISTRY METHOD 03/07/2025 9:32 PM [facility] Total Protein 6.3 6.0 - 8.0 g/dL LAB CHEMISTRY METHOD 03/07/2025 9:32 PM [facility] Albumin 2.6(L) 3.2 - 5.0 g/dL LAB CHEMISTRY METHOD 03/07/2025 9:32 PM [facility] Total Bilirubin 0.3 0.0 - 1.4 mg/dL LAB CHEMISTRY METHOD 03/07/2025 9:32 PM [facility] Blood Venous blood specimen / Unknown Venipuncture / Unknown 03/07/2025 8:26 PM EDT 03/07/2025 8:54 PM EDT us Armond Boland MD LAB BLOOD ORDERABLES Final Result [facility] [address] [place] [address], * Lipid panel (06/17/2024) LDL/HDL Ratio 3 0 - 4 Triglycerides 149 0 - 150 mg/dL Cholesterol 152 0 - 200 mg/dL HDL 62 >=40 mg/dL LDL Cholesterol 61 0 - 100 mg/dL Blood Venous blood specimen / Unknown Historical Provider LAB BLOOD ORDERABLES Cherelle l Result * Hm HIV Screening (04/27/2018) Pathologist [facility] HIV Screening Abstracted Historical Provider HEALTH MAINTENANCE Final Result * Hemoglobin A1c (08/06/2015) Pathologist [facility] Hemoglobin A1C 5.4 4.0 - 6.0 % Blood Venous blood specimen / Unknown Historical Provider LAB BLOOD ORDERABLES Cherelle l Result from Last 3 Months or Most Recently Relevant to Health Maintenance Insurance MEDICAID - [place] Care Teams Head Of History Relationship Specialty Start Date End Date Kendall Lane MD [address] [place] [address] [facility] - General 02/25/24
--- OUTSIDE RECORDS SUMMARY | 2025-03-14 07:54 | XMS_ITS | Encounter Summary ---
Author Organization [facility] Address [address] [place] [address] Phone Care Team Providers Care Dairy Equipment Installer Name Role Phone Kendall Lane MD Primary Care Provider [phone] Encounter Details Date Type Department Care Team (Late st Contact Info) Description 04/03/2021 Orders Only [facility] [address] [place] [id number] Sonia Shen [place] Chronic kidney disease, not [...] Primary documented in this encounter Care Teams Dairy Equipment Installer Relationship Specialty Start Date End Date Kendall Lane MD [address] [place] [address] PCP - General Internal Medicine 02/10/24 documented as of this encounter
--- OUTSIDE RECORDS SUMMARY | 2025-03-14 07:54 | XMS_ITS | Encounter Summary ---
Author Organization [facility] Address [address] [facility] [address] [place] [address] Phone Care Team Providers Care Scene And Lighting Design Lecturer Name Role Phone Kendall Lane MD Primary Care Provider [phone] Encounter Details Date Type Department Care Team (Late st Contact Info) Description 2022 Telephone [facility] [address] [place] [address] Branden Lomeli MD [address] [place] [address], [address] [address] Social History Tobacco Use Types Packs/Day Years [...] a refill for Suboxone please send to [facility] on [address] Thank you documented in this encounter Plan of Treatment Not on file documented as of this encounter Visit Diagnoses Not on filedocumented in this encounter Care Teams Scene And Lighting Design Lecturer Relationship Specialty Start Date End Date Kendall Lane MD [address] [place] [address] PCP - General Internal Medicine 02/10/24 documented as of this encounter
--- OUTSIDE RECORDS SUMMARY | 2025-03-14 07:54 | XMS_ITS | Clinical Summary ---
Author Organization [facility] Address [address] [place] [address] Care Team Providers Care Deburring And Tooling Machine Operator Name Role Phone Branden Lomeli MD Primary Care Provider [phone] Allergies No known active allergies Medications Medication [...] of Treatment Not on file Care Teams Deburring And Tooling Machine Operator Relationship Specialty Start Date End Date Branden Lomeli MD [address] [facility] [place] [address] PCP - General Nephrology 01/16/21
--- OUTSIDE RECORDS SUMMARY | 2025-03-14 07:54 | XMS_ITS | Encounter Summary ---
Author Organization [place] [address] Care Team Providers Care Chute Operator Name Role Phone Kendall Lane MD Primary Care Provider [phone] Reason for Visit * Reason Onset Date Comments Results 03/08/2025 Defibrillator 03/08/2025 Encounter Details Date Type Department Care Team (Late st Contact Info) Description 03/08/2025 Telephone [facility] [address] [facility] [address] [place] [address] Kade Zhang MD 300 [facility] [address] [place] [address] Results; Defibrillator Social History Tobacco Use Types Packs/Day Years [...] as of this encounter Progress Notes * Maryanne Lou - 03/09/2025 2:31 PM EDT Patient returned call for an update, appointment booked 03/29/25 at 1:[address] Zhang * Yu Cueto - 03/09/2025 8:03 AM EDT Per Rosalia Reyna, could you please fit this patient in with Dr. Vicente FAIR. She doesn't care if you have to double book him. Thanks! * LEO Cole - 03/08/2025 10:11 AM EDT Will remind Dr. Zhang once again he said he was going to call them last night * Latisha Fuentes RN - 03/08/2025 9:58 AM EDT See encounter 02/14/25 * Maryanne Lou - 03/08/2025 9:51 AM EDT Patient would like to discuss his MRI results from 02/06/25, and further schedule his intracardiac defibrillator procedure. Please return his call to discuss at [phone]. documented in this encounter Plan of Treatment Upcoming Encounters Date Type Department Care Team (Late st Contact Info) Description 03/29/2025 1:45 PM EDT Office Visit [facility] [address] [facility] [address] [place] [address] Kade Zhang MD 300 [facility] [address] [place] [address] documented as of this encounter Visit Diagnoses Not on filedocumented in this encounter Care Teams Chute Operator Relationship Specialty Start Date End Date Kendall Lane MD [address] [place] [address] PCP - General 02/25/24 documented as of this encounter
--- OUTSIDE RECORDS SUMMARY | 2025-03-14 07:55 | XMS_ITS | Clinical Summary ---
Author Organization [facility] Address [address] [place] [address] Care Team Providers Care Golf Course Ranger Name Role Phone Kendall Lane MD Primary Care Provider [phone] Source Comments PLEASE NOTE, if this patient [...] mouth nightly at bedtime 90 Tablet 1 023 Active MISCELLANEOUS MEDICAL SUPPLY MISCIndications:P rimary hypertension BP monitor Kit Code I10 1 Each 024 Active alcohol swabs (ALCOHOL PREP PADS)Indications: Type 2 diabetes mellitus with hyperglycemia, without long-term current use of insulin ([facility]) Use to test 3 times daily 100 Each 5 024 Active blood-glucose meter monitoring kitIndications:Co ntrolled type 2 diabetes mellitus without complication, without long-term current use of insulin ([facility]) as needed for blood glucose monitoring Pt is Diabetic E 11.9 1 Each 024 Active blood sugar diagnostic (FREESTYLE TEST) stripsIndications :Type 2 diabetes mellitus with hyperglycemia, without long-term current use of insulin ([facility]) Use 1 Each as directed 3 (three) times a day USE 1 FREESTYLE TEST STRIP TO TEST BLOOD GLUCOSE BEFORE se to test BG 3 times daily 100 Each 5 024 Active lancets 28 gaugeIndications: Type 2 diabetes mellitus with hyperglycemia, without long-term current use of insulin ([facility]) Use 1 Lancet as directed 3 (three) times a day To test blood glucose before meals!! 100 Each 5 024 Active valACYclovir (VALTREX) 1 gram tablet Take 1 Tablet by mouth 2 (two) times daily 30 Tablet 5 024 Active sildenafiL (VIAGRA) 100 mg tablet TAKE ONE TABLET 60 MINUTES BEFORE SEXUAL ACTIVITY. MAX OF ONE TABLET DAILY Authorized by: MERVIN WOLF 024 Active predniSONE (DELTASONE) 10 mg tablet Take 10 mg by mouth TAKE 1 TABLET BY MOUTH 1 TIME EACH DAY. Authorized by: ISAI LOMELI 024 Active valsartan (DIOVAN) 40 mg tabletIndications :Primary hypertension Take 1 Tablet by mouth once daily 90 Tablet 1 024 Active metoprolol succinate XL (TOPROL-XL) 25 mg 24 hr tabletIndications :Primary hypertension Take 1 Tablet by mouth once daily 30 Tablet 2 024 Active lidocaine (LIDODERM) 5 % patchIndications: Neck pain PLACE 1 PATCH ONTO THE SKIN DAILY. APPLY 1 PATCH TO THE AFFECTED AREA FOR A MAXIMUM OF 12 HOURS, FOLLOWED BY REMOVAL FOR 12 HOURS. 90 Patch 2 024 Active acetaminophen (TYLENOL) 500 mg tabletIndications :Routine general medical examination at a health care facility Take 1 Tablet by mouth every 6 (six) hours as needed for pain 60 Tablet 1 024 Active DULoxetine (CYMBALTA) [address] capsule Take 30 mg by mouth once daily Active hydrOXYzine HCL (ATARAX) 50 mg tablet Take 50 mg by mouth 2 (two) times daily 024 Active clonazePAM (KLONOPIN) 1 mg tablet TAKE 1 TABLET BY MOUTH TWICE A DAY NEEDED PANIC ATTACKS Authorized by: JEANINE YUEN 024 Active dapagliflozin propanediol (FARXIGA) 10 mg tabIndications:Co ntrolled type 2 diabetes mellitus without complication, without long-term current use of insulin ([facility]) Take 1 Tablet by mouth every morning 90 Tablet 1 024 Active glipiZIDE (GLUCOTROL) 10 mg tabletIndications :Controlled type 2 diabetes mellitus without complication, without long-term current use of insulin ([facility]) TAKE 1 TABLET BY MOUTH TWICE A DAY BEFORE MEALS 180 Tablet 025 Active MISCELLANEOUS MEDICAL SUPPLY MISCIndications:Rex tripp falls by miscellaneous route daily. Shower Chair Diagnosis- Multiple Fall Code- R 29.6 1 Each 025 Active cyclobenzaprine (FLEXERIL) 10 mg tablet TAKE 1 TABLET BY MOUTH 2 TIMES DAILY NEEDED FOR MUSCLE SPASMS. 90 Tablet 1 025 Active gabapentin (NEURONTIN) 300 mg capsuleIndication s:Diabetic polyneuropathy associated with type 2 diabetes mellitus ([facility]) Take 2 Capsules by mouth 3 (three) times daily 180 Capsule 3 025 Active rosuvastatin (CRESTOR) 40 mg tabletIndications :Other hyperlipidemia TAKE 1 TABLET BY MOUTH EVERYDAY AT BEDTIME 90 Tablet 1 025 Active warfarin 7.5 mg tabletIndications :Anticoagulation goal of INR 2 to 3 TAKE 1&1/2 TABLETS SUNDAYS,THURSDAY S, THURSDAYS & 1 TAB ALL OTHER DAYS DIRECTED BY COUMADIN CLINIC 34 Tablet 2 025 Active spironolactone (ALDACTONE) 25 mg tablet TAKE 1/2 TABLET BY MOUTH DAILY FOR 180 DAYS Authorized by: KATLIN FOUNTAIN 025 Active pioglitazone (ACTOS) 45 mg tabletIndications :Controlled type 2 diabetes mellitus without complication, without long-term current use of insulin ([facility]) TAKE 1 TABLET BY MOUTH EVERY DAY 90 Tablet 025 Active pioglitazone (ACTOS) 45 mg tabletIndications :Controlled type 2 diabetes mellitus without complication, without long-term current use of insulin ([facility]) Take 1 Tablet by mouth once daily 90 Tablet 1 024 2024 Discontinued warfarin (COUMADIN) 7.5 mg tabletIndications :Anticoagulation goal of INR 2 to 3 TAKE 1&1/2 TABLETS SUNDAYS,THURSDAY S, THURSDAYS & 1 TAB ALL OTHER DAYS DIRECTED BY COUMADIN CLINIC 34 Tablet 2 025 2024 Discontinued(R eorder (E-Cancel Not Sent)) Active Problems Problem Noted Date Diagnosed Date Food insecurity 03/01/2025 Financial difficulties 03/01/2025 CKD (chronic kidney disease) 03/03/2024 Overview (03/03/2024): [facility] Anticoagulation goal of INR 2 to 3 02/09/2024 NSTEMI (non-ST elevated myocardial infarction) ( [facility]) 02/08/2024 Overview (02/08/2024): Seen initially at [facility] 01/31/24 NSTEMI [facility]- transfer from [facility] for evaluation and management of NSTEMI. S/P PCI- 02/01/24 - [facility] Cardiology CT angio of the [...] goes to [facility] and [facility] Admission for NSTEMI echo revealed LV thrombus [...] complication, without long-term current use of insulin ([facility]) 06/25/2023 Other hyperlipidemia 06/25/2023 Diabetic polyneuropathy asso ciated with type 2 diabetes mellitus ([facility]) 06/25/2023 Resolved Problems Problem Noted Date Diagnosed Date Resolved Date Elevated serum creatinine 06/29/2023 Overview (02/08/2024): Sees Nephrology Dr. Isai Lomeli Encounters Date Type Department Care Team Description 02/14/2025 3:00 PM EDT Office Visit [address] [phone] Kwesi Skelton, PharmD Anticoagulation goal of INR 2 to 3 (Primary Dx); NSTEMI (non-ST elevated myocardial infarction) ([facility]); LV (left ventricular) mural thrombus 01/16/2025 11:20 AM EST Office Visit [phone] MD Controlled type 2 diabetes mellitus without complication, without long-term current use of insulin ([facility]) (Primary Dx); Primary hypertension; Other hyperlipidemia; Diabetic polyneuropathy associated with type 2 diabetes mellitus ([facility]) 01/13/2025 1:40 PM EST Office Visit [address] [phone] Kwesi Skelton, PharmD Type 2 diabetes mellitus with hyperglycemia, without long-term current use of insulin ([facility]) (Primary Dx); Anticoagulation goal of INR 2 to 3; NSTEMI (non-ST elevated myocardial infarction) ([facility]) 12/22/2024 2:40 PM EST Telemedicine Visit [address] [phone] Tanya Lazo NP Primary hypertension (Primary Dx); Controlled type 2 diabetes mellitus without complication, without long-term current use of insulin ([facility]); NSTEMI (non-ST elevated myocardial infarction) ([facility]); LV (left ventricular) mural thrombus; Anticoagulation goal of INR 2 to 3 12/19/2024 Interim Notes [address] [phone] Rudolph Ordoñez [place] 12/16/2024 Interim Notes [address] [phone] PierrejuandanielleBrandi 12/16/2024 Interim Notes [address] [phone] MD Multiple falls (Primary Dx) 12/15/2024 Interim Notes [address] [phone] Lulu Corley RN 12/15/2024 Interim Notes [address] [phone] Heavenly Maria from Last 3 Months Immunizations Immunization Administration Dates Next Due Hep B,adult,adjuvanted (HEPLISAV) 08/26/2023,08/2023 INFLUENZA, SEASONAL, INJECTABLE 07/13/2014 Moderna COVID-19 Vaccine, re d cap blue label, 12+ Primary Series 11/28/2021,03/20/2021,02/19/2021 PNEUMOCOCCAL CONJUGATE PCV 20 (Prevnar) 03/03/20 24 Pfizer COVID-19 (Comirnaty), Mrna, Lnp-s, Pf, Miguel-sucrose, 30 Mcg/0.3 Ml, 12yr+ 11/02/2023 Pfizer-BioNTech COVID-19 Vac cine Bivalent, (RUEDA PFIZER-BIONTECH COVID-19 VACCINE BIVALENT, (RUEDA CAP 08/13/2022 TDAP 01/20/2020,08/13/2010 ZOSTER VACCINE, RECOMBINANT (SHINGRIX) 3,06/26/2023 Social History Tobacco Use Types Packs/Day Years Used Date Smoking Tobacco: Every Day Cigarettes 0.5 1.1 Started: 02/14/2024; Last attempted to quit: 02/01/2024 Passive Smoke Exposure: Never Smokeless Tobacco: Never Comments:Smoking 10 cigarett es a day Alcohol Use Standard Drinks/Week Comments Not Currently 0 (1 standard drink = 0.6 oz pur e alcohol) Social Connections Answer Date Recorded Connectedness 1 03/01/2025 Financial Resource Strain Answer Date R ecorded Financial Resource Strain 2 2024 Stress Answer Date Recorded Stress 1 03/01/2025 Physical Activity Answer Date Recorded Physical Activity 0 03/31/2023 Food Insecurity Answer Date Recorded Food 2 03/01/2025 Transportation Needs Answer Date Record ed Transportation 1 03/01/2025 Housing Stability Answer Date Recorded Housing 1 03/01/2025 Safety and Environment Answer Date Noé rded Safety 0 03/31/2023 Utilities Answer Date Recorded Utilities 1 03/01/2025 Employment Answer Date Recorded Stress 0 08/04/2024 [...] Description 03/21/2025 3:00 PM EDT Office Visit [facility] [address] [place] [address] Kwesi Skelton, PharmD [address] [place] [address] Health Maintenance Due Date Last Done Comments [...] exists Annual Preventive Care Visit 09/09/2025 09/09/2024 Tobacco Cessation Counseling (#1) 09/13/2025 024, 05/17/2024 Diabetes Foot Exam 01/16/2026 01/16/2025, 11/02/2023 Serum Creatinine 03/07/2026 03/07/2025, , 06/17/2024, Additional history exists Imm-DTaP/Tdap/Td (3 - Td or Tdap) 01/19/2030 020, 08/13/2010 Imm-Influenza Discontinued 07/13/2014 HIV Screening Completed 06/25/2023 Hepatitis C Screening Completed 06/25/2023 Imm-Hepatitis B Completed 08/26/2023, 06/25/2023 Imm-Zoster, Recombinant Completed 08/26/2023, 06/26 [id number] Discontinued 11/02/2023, 07/18, 11/28/2021, Additional history exists Imm-Pneumococcal Completed 03/03/2024 Alcohol and Drug Screen Completed 01/17/20, 09/09/2024, 02/11/2024, Additional history exists Procedures Procedure Name Priority Date/Time Associated Diagnosis Comments IMAGING SCANNED DOCUMENT 03/07/2025 3:00 AM EDT INR COAGUCHEK XS (POCT) Routine 02/14/2025 3:11 PM EDT Anticoagulation goal of INR 2 to 3 GLYCOSYLATED (A1C) DEVICE (CLIA WAIVED) POCT Routine 01/13/2025 2:38 PM EST Type 2 diabetes mellitus with hyperglycemia, without long-term current use of insulin ([facility]) INR COAGUCHEK XS (POCT) Routine 01/13/2025 2:03 PM EST Anticoagulation goal of INR 2 to 3 GLUCOSE, BLOOD BY GLUCOSE MONITORING DEVICE (CLIA WAIVED)POCT Routine 01/13/2025 2:03 PM EST Type 2 diabetes mellitus with hyperglycemia, without long-term current use of insulin ([facility]) CARD SCANNED DOCUMENT 01/10/2025 3:00 AM EST REFERRAL SCANNED DOCUMENT 01/10/2025 3:00 AM EST REFERRAL SCANNED DOCUMENT 01/10/2025 3:00 AM EST CARD SCANNED DOCUMENT 12/26/2024 3:00 AM EST REFERRAL SCANNED DOCUMENT 12/26/2024 3:00 AM EST COMPREHENSIVE METABOLIC PANEL Routine 09/09/2024 9:27 AM EDT Routine general medical examination at a health care facility Primary hypertension Other hyperlipidemia Controlled type 2 diabetes mellitus without complication, without long-term current use of insulin ([facility]) Stage 3a chronic kidney disease ([facility]) LIPIDS W RFLX TO DIRECT LDL Routine 03/04/2024 9:16 AM EDT Other hyperlipidemia MICROALBUMIN/CREATININ E RATIO, URINE, RANDOM Routine 02/12/2024 1:38 PM EDT Controlled type 2 diabetes mellitus without complication, without long-term current use of insulin ([facility]) REFERRAL TO DIABETIC RETINAL EXAM Routine 01/13/2024 3:00 AM EST Controlled type 2 diabetes mellitus without complication, without long-term current use of insulin ([facility]) HIV 1/2 AG & AB W/RFLX [...] Recently Relevant to Health Maintenance Results * IMAGING SCANNED DOCUMENT (03/07/2025 3:00 AM EDT) 03/07/2025 3:[address] MD SCAN IMAGING Final Result * INR COAGUCHEK XS (POCT) (02/14/2025 3:11 PM EDT) Only the most recent of2 resultswithin the time period is included. INR 3.0 2.0 - 3.5 Ratio [facility]- BACK OFF[facility] POCT Comment:36.4secs Blood Blood / Unknown 02/14/2025 3 :11 PM EDT Kwesi Hyman PharmD LAB - BLOOD D RAW Final Result [facility]- BACK OFFICE POCT * (ABNORMAL) GLYCOSYLATED (A1C) DEVICE (CLIA WAIVED) POCT (01/13/2025 2:38 PM EST) HGB A1C 7.2(A) 4.2 - 6.5 % [facility] BACK OFFICE POCT Capillary Blood Blood / Unknown 2:38 PM EST Kwesi Hyman PharmD LAB - BLOOD D RAW Final Result [facility]- BACK OFF[facility] POCT * (ABNORMAL) GLUCOSE, BLOOD BY GLUCOSE MONITORING DEVICE (CLIA WAIVED)POCT (01/13/2025 2:03 PM EST) GLUCOSE 109(A) 70 - 100 mg/dL [facility]- BACK OFFICE POCT Capillary Blood Blood / Unknown 2:03 PM EST Kwesi Hyman PharmD LAB - BLOOD D RAW Final Result [facility]- BACK OFFICE POCT * CARD SCANNED DOCUMENT (01/10/2025 3:00 AM EST) Only the most recent of2 resultswithin the time period is included. 01/10/2025 3:00 AM EST Result [facility] Mireya Mehta PA-C SCAN ECGS Final Result * REFERRAL SCANNED DOCUMENT (01/10/2025 3:00 AM EST) Only the most recent of3 resultswithin the time period is included. 01/10/2025 3:[address] MD SCAN REFERRAL Final Result * (ABNORMAL) COMPREHENSIVE METABOLIC PANEL (09/09/2024 9:27 AM EDT) GLUCOSE 121 65 - 139 mg/dL [facility] Comment: ?Non-fasting reference interval UREA NITROGEN (BUN) 16 7 - 25 mg/dL [facility] CREATININE (blood) 1.32(H) 0.70 - 1.30 mg/dL [facility] [employer] [facility] EGFR 64 > OR = 60 mL/min/1. 73m2 [facility] [employer] [facility] BUN/CREATININE RATIO 12 6 - 22 (calc) [facility] [employer] [facility] SODIUM 140 135 - 146 mmol/L [facility] POTASSIUM 4.9 3.5 - 5.3 mmol/L [facility] [employer] [facility] CHLORIDE 103 98 - 110 mmol/L [facility] [employer] [facility] CARBON DIOXIDE 30 20 - 32 mmol/L [facility] [employer] [facility] CALCIUM 9.4 8.6 - 10.3 mg/dL [facility] [employer] [facility] PROTEIN, TOTAL 6.2 6.1 - 8.1 g/dL [facility] ALBUMIN 3.4(L) 3.6 - 5.1 g/dL [facility] [place] [facility] GLOBULIN 2.8 1.9 - 3.7 g/dL (calc) [facility] ALBUMIN/GLOBULI N RATIO 1.2 1.0 - 2.5 (calc) [facility] [place] [facility] BILIRUBIN, TOTAL 0.3 0.2 - 1.2 mg/dL [facility] ALKALINE PHOSPHATASE 68 35 - 144 U/L [facility] AST 23 10 - 35 U/L [facility] ALT 27 9 - 46 U/L [facility] Blood Blood / Unknown 09/09/2024 9 :27 AM EDT 09/09/2024 9:28 AM EDT Narrative [facility] - 09/10/2024 6:40 AM EDT FASTING:NO us Kendall Lane MD LAB - BLOOD DRAW Final Result [facility] [address] [id number], [facility] [address] [address] * (ABNORMAL) LIPIDS W RFLX TO DIRECT LDL (03/04/2024 9:16 AM EDT) CHOLESTEROL, TOTAL 126 <200 mg/dL [facility] HDL CHOLESTEROL 41 > OR = 40 mg/dL [facility] TRIGLYCERIDES 162(H) <150 mg/dL [facility] LDL-CHOLESTEROL 61 99 mg/dL (calc) [facility] Comment: Reference range: <100 Desirable range <100 mg/dL for primary prevention; ?? <70 mg/dL for patients with CHD or diabetic patients with > or = 2 CHD risk factors. LDL-C is now calculated using the Archie calculation, which is a validated novel method providing better accuracy than the Friedewald equation in the estimation of LDL-C. Vicente WISE et al. TY. 2013;310(19): 8848-5431 (http://education.SalesPredict.Stockpulse/faq/UJY495) CHOL/HDLC RATIO 3.1 <5.0 (calc) [facility] NON-HDL CHOLESTEROL 85 <130 mg/dL (calc) [facility] Comment: For patients with diabetes plus 1 major ASCVD risk factor, treating to a non-HDL-C goal of <100 mg/dL (LDL-C of <70 mg/dL) is considered a therapeutic option. Blood Blood / Unknown 03/04/2024 9 :16 AM EDT 03/04/2024 9:18 AM EDT Narrative [facility] - 03/05/2024 6:30 AM EDT FASTING:YES Kendall Lane MD LAB - BLOOD DRAW Final Result Performing Organization Address [facility] de Phone Number [facility] [address] [place] [id number], [facility] [address] [address] * MICROALBUMIN/CREATININE RATIO, URINE, RANDOM (02/12/2024 1:38 PM EDT) Pathologist [facility] CREATININE, RANDOM URINE 83 20 - 320 mg/dL [facility] MICROALBUMIN 1.2 mg/dL [facility] Comment: Reference Range Not established MICROALBUMIN/CREA TININE RATIO, RANDOM URINE 14 <30 mg/g creat [facility] Comment: The ADA defines abnormalities in albumin [...] DRAW Final Resul t Performing Organization Address [facility] Co de Phone Number [facility] [address] [place] [phone], [place] [facility] [address] [address] * REFERRAL TO DIABETIC RETINAL EXAM (01/13/2024 3:00 AM EST) 01/13/2024 3:[address] EST us [address] MD REFERRAL Edited Result - Final * HEPATITIS C AB W/RFLX HCV RNA, QT, RT PCR (06/25/2023 10:35 AM EDT) HEPATITIS C ANTIBODY NON-REACT FOREIGN NON-REACT FOREIGN [facility] [employer] [facility] Comment: HCV antibody was non-reactive. There is no laboratory evidence of HCV infection. In most cases, no further action is required. However, if recent HCV exposure is suspected, a test for HCV RNA (test code 75039) is suggested. For additional information please refer to http://education.[employer]/faq/IID02r7 (This link is being provided for informational/ educational purposes only.) Blood Blood / Unknown 06/25/2023 1 0:35 AM EDT 06/25/2023 10:36 AM EDT Narrative [facility] - 06/26/2023 6:28 PM EDT FASTING:NO Kendall Lane MD LAB - BLOOD DRAW Edited Result - Final [facility] [address] [place] [phone], [facility] [address] [address] * HIV 1/2 AG & AB W/RFLX (4TH GEN) (06/25/2023 10:35 AM EDT) HIV AG/AB, 4TH GEN NON-REAC TIVE NON-REAC TIVE [facility] [employer] [facility] Comment: HIV-1 antigen and HIV-1/HIV-2 antibodies were [...] ?? For additional information please refer to http://education.[employer]/faq/UGN430 (This link is being provided for informational/ educational purposes only.) The performance of this assay has not been clinically validated in patients less than 2 years old. Blood Blood / Unknown 06/25/2023 1 0:35 AM EDT 06/25/2023 10:36 AM EDT Narrative [facility] - 06/26/2023 6:28 PM EDT FASTING:NO us Kendall Lane MD LAB - BLOOD DRAW Final Result Performing Organization Address [facility] de Phone Number [facility] [address] [place] [id number], [facility] [place] [facility] [address] [place] [phone] * FECAL GLOBIN BY IMMUNOCHEMISTRY (FIT) (06/24/2023 8:00 PM EDT) FECAL GLOBIN BY IMMUNOCHEMISTRY See Note [facility] Comment: ??FECAL GLOBIN BY IMMUNOCHEMISTRY ?Micro Number: ?[id number] ??Test Status: ? Final ??Specimen Source: ?? Insure (tm) fobt test card ??Specimen Quality: ??Adequate ??Fecal Globin: ?Not Detected Stool Stool specimen / Unknown 06/24/2023 8:00 PM EDT 06/30/2023 3:48 [address] EDT us [address] MD LAB - NO BLOOD DRAW Final Resul t Performing Organization Address [facility] Co de Phone Number [facility] [address] [place] [id number], [facility] [address] [address] from Last 3 Months or Most Recently Relevant to Health Maintenance Insurance [address] [employer] Care Teams Golf Course Ranger Relationship Specialty Start Date End Date Kendall Lane MD [address] [place] [address] PCP - General Internal Medicine 06/25/23
--- NOTE | 2025-03-14 08:54 | MHC.OFFVIS ---
Intake Visit Reasons: retrograde ejaculation(Needs PSA) Intake Note: Patient is present for RETROGRADE EJACULATION/PSA Urology Medication:SILDENAFIL Antibiotic Allergy:NONE Blood Thinner:NONE Communication Consultant Required: No Allergies metal Allergy (Unknown, Uncoded 03/14/25 08:56) Unknown Soap & Cleansers Allergy (Unknown, Uncoded 03/14/25 08:56) betito dishwashing soap HPI Comments Details: Edmundo PALACIO is a very pleasant male. They are a patient of Dr Izquierdo? . They are seen in the office today for the following urologic conditions. - epididymal scarring - erectile dysfunction - microscopic hematuria Has not been seen in 18 months Has been on baseline tadalafil 10 mg daily with on demand sildenafil 100 mg Previously on Suboxone Refill PDE5 prescription Check baseline T 12 month follow-up Last PSA 03/10 2.5 Microscopic Hematuria: Clear on exam - has neovascularity on back of prostate Stable with no recurrence. Microscopic hematuria was diagnosed during routine UA with PCP. They are here for the 12 month evaluation. Since the last visit the patient has has not noticed gross hematuria, continues to test postive for microscopic hematuria. Relevant medical history for renal insufficiency, tobacco use. Associated symptoms include dysuria No frequency No urgency No decreased urinary stream No pain No nausea No weight loss No Radiographic imagin , CT IVP normal. Other investigations 05/03 , cytology, normal. Erectile dysfunction: He presents today for for continued evaluation and management of erectile dysfunction. Symptoms have been present for/since several months ago. Procedure(s)/Diagnosis causing dysfunction include renal insufficiency - does not get adequate sleep. Current treatment includes none. Prior therapies include oral medications - has responded. At this time he experiences erections are partial and adequate for vaginal penetration, that undergo rapid detumesence after penetration, RAFAEL 12-16 Mild-Moderate ED. Nocturnal erections do not occur. Currently they are in a stable relationship. Overall he is is not satisfied with the current management. Therapeutic plan includes oral medication - generic rx provided [facility] Medical History (Updated 03/14/25 @ 09:49 by Alfonso Galindo MD) Tobacco abuse Chronic obstructive pulmonary disease (COPD) OA (osteoarthritis) Eczema Chronic kidney disease, stage 3 HTN (hypertension) Anxiety Epididymal pain Erectile dysfunction due to arterial insufficiency Hypogonadism in male Microscopic hematuria Review of Systems Const Denies chills and Denies fever(s) Card Reports no additional complaints and Denies syncope Resp Denies cough GI Denies abdominal pain and Denies heartburn Reports as per HPI and Denies change in libido Neuro Denies syncope Psych Denies change in libido Endo Denies change in libido Physical Exam Const General: cooperative, healthy appearing, comfortable and no acute distress Orientation/consciousness: patient oriented x3 HEENT Face and sinus: Yes normal facial exam Mouth: moist mucous membranes Neck Neck: Yes normal visual inspection, Yes full ROM and Yes trachea midline Chest Chest palpation & inspection: normal inspection of the chest Resp Effort & Inspection: normal respiratory effort, able to speak in complete sentences and no respiratory distress GI Inspection: Yes normal to inspection Back/Spine/Pelvis Cervical Spine: normal cervical lordosis Thoracic/Lumbar Spine: thoracic and lumbar spine normal to inspection Skin General skin exam: no rashes or lesions noted Neuro General: patient oriented x3, gait normal, tone normal and moves all extremities Extrem General: Yes normal to inspection and Yes capillary refill normal Assessment & Plan Assessment & Plan (1) Hypogonadism: Category: Medical (2) Hypogonadism in male: Code(s): E29.1 - Testicular hypofunction Category: Medical Plan Check testosterone today Twelve month follow-up Refill medications Orders: Orders Testosterone, Free/Total Today E29.1 - Testicular hypofunction Patient Instructions: This note is constructed using voice recognition software. While every effort has been made to ensure accuracy dirt bike mechanic errors may have been included. Imaging studies, laboratory and physical exam results were discussed and reviewed in detail. No major barriers to patient understanding were identified. An opportunity to ask questions regarding the treatment plan was provided. All questions were answered. The patient expressed understanding and agreement with the above treatment plan. The patient is aware they should contact our office by phone for worsening of their current condition or the appearance of new urologic symptoms. Compliance is encouraged with any medications and followup testing that is ordered. It is a privilege to participate in the urologic care of your patient. If you have any questions or concerns regarding treatment for the above conditions, or other urologic issues, please do not hesitate to contact me. The office telephone contact is [phone]. Sincerely, Dr Alfonso Galindo MD, [facility] - Urology Compassionate Specialist Care for the Genitourinary System Coding Level of Care Code Est Pt Level 4 (68494) Diagnoses Hypogonadism Hypogonadism in male E29.1
== END 2025-03-14 09:52 | disposition home or self-care (01) ==
LOC: HO.HUSH 07:51
PROVIDERS: PCP Internal Medicine; Visit Provider Urology
DX: E29.1 Testicular hypofunction (principal)
CPT/HCPCS: 99214

== ENCOUNTER → 2025-03-14 07:50 | Outpatient (BNVA) | payer MEDICAID, SELFPAY | PROVIDERS: PCP Internal Medicine; Visit Provider Urology | DX: E29.1 Testicular hypofunction (principal) | CPT/HCPCS: 99212 ==

== ENCOUNTER 2025-03-14 09:53 | Outpatient (REF) | payer MEDICAID, SELFPAY ==
--- OUTSIDE RECORDS SUMMARY | 2025-03-14 11:06 | XMS_ITS | Encounter Summary ---
Author Organization [facility] Address [address] [place] [address] Phone Care Team Providers Care Hand Mica Plate Layer Name Role Phone Kendall Lane MD Primary Care Provider [phone] Reason for Visit * Reason Comments Med Refill Encounter Details Date Type Department Care Team ([facility] st Contact Info) Description 01/15/2024 Refill [facility] [address] [place] [phone] Branden Lomeli MD [address] [place] [address], [address] [address] Social History Tobacco Use Types Packs/Day Years [...] on filedocumented in this encounter Care Teams Hand Mica Plate Layer Relationship Specialty Start Date End Date Kendall Lane MD [address] [place] [place] [address] PCP - General Internal Medicine 02/10/24 documented as of this encounter
--- OUTSIDE RECORDS SUMMARY | 2025-03-14 11:06 | XMS_ITS | Encounter Summary ---
Author Organization [facility] Address [address] [place] [address] Phone Care Team Providers Care Contracts Director Name Role Phone Kendall Lane MD Primary Care Provider [phone] Encounter Details Date Type Department Care Team (Late st Contact Info) Description 2022 Telephone [facility] [address] [place] [address] Branden Lomeli MD [address] [place] [address], [address] [address] Social History Tobacco Use Types Packs/Day Years [...] a refill for Suboxone please send to [facility] on [address] Thank you documented in this encounter Plan of Treatment Not on file documented as of this encounter Visit Diagnoses Not on filedocumented in this encounter Care Teams Contracts Director Relationship Specialty Start Date End Date Kendall Lane MD [address] [place] [address] PCP - General Internal Medicine 02/10/24 documented as of this encounter
--- OUTSIDE RECORDS SUMMARY | 2025-03-14 11:06 | XMS_ITS | Clinical Summary ---
Author Organization [facility] Address [address] [facility] [address] [place] [address] Phone Care Team Providers Care Body Presser Name Role Phone Kendall Lane MD Primary Care Provider [phone] Allergies Active Allergy Reactions Criticality Noted Date [...] unspecified, uncomplicated 03/31/20 16 Overview (09/20/2021): Seeing [facility] in [place], [place] 03/2016 Chronic kidney disease stage 3 04/18/2015 Overview (04/03/2021): Renal (09/06/17): resolving herson cause unkown, repeat labs. Dr Tatum Secondary to HERSON Hospitalized at [facility] 03/2015 with creatinine 10 - thought 2/2 rhabdo 2/2 cocaine abuse, NSAIDs, uncontrolled HTN Spot spep showed monoclonal IgG Lambda - 24h urine pending [facility] with [facility] Most recent creatinine 1.7 Eczema 09/05/2014 Pain in left knee 06/08/2014 Overview (09/20/2021): [facility] - 06/06/14 - Kenalog injection; followup [...] PM EDT Performed at: ??01 - [facility] [address] ??[id number] Aeronautics Teacher: Bianca Chin MD, Phone: ??[phone] us Branden Lomeli MD LAB BLOOD ORDERABLES Final Re sult [facility] from Last 3 Months or Most Recently Relevant to Health Maintenance Insurance Medicaid [place] Care Teams Body Presser Relationship Specialty Start Date End Date Kendall Lane MD [address] [place] [address] PCP - General Internal Medicine 02/10/24
--- OUTSIDE RECORDS SUMMARY | 2025-03-14 11:06 | XMS_ITS | Clinical Summary ---
Author Organization [address] [place] [address] Address [address] [place] [address] Phone Care Team Providers Care Lamp Shade Joiner Name Role Phone Kendall Lane MD Primary Care Provider [phone] Allergies Active Allergy Reactions Criticality Noted Date Comments Nickel 04/04/2014 Other Reaction(s): Rash/Dermatitis Sacubitril-Valsartan Diarrhea 07/05/2024 Soap Anaphylaxis,Hives High 04/04/2014 Ana dishwashing detergant Medications clopidogreL (PLAVIX) 75 mg tablet Take 1 Tablet by mouth daily. Do not stop for any reason without calling [phone]. 02/25/2024 Active cyclobenzaprine (FLEXERIL) 10 mg tablet [...] by mouth daily. Pt is followed by [facility]. 02/09/2024 Active clonazePAM (KlonoPIN) 1 mg tablet Take 1 tablet (1 mg total) by mouth 2 (two) times a day. Active Active Problems Problem Noted Date Diagnosed Date Tobacco use 12/26/2024 Assessment & Plan (12/26/2024 3:38 PM EST): - Advised to quit smoking - Prefers to quit cold turkey without cessation aids Coronary artery disease invo lving [place] coronary artery of [place] heart without angina pectoris 02/25/2024 Overview (10/11/2024): [...] LVEF 25-30% at the time of his [place] - Repeat echo most recently-presumably on maximally [...] Coumadin as prescribed and followed by the [facility] with a goal INR 2-3. Will recheck [...] disease, without long-term current use of insulin ([facility] V24, [facility] V28) 12/31/2022 Recurrent genital herpes [...] Overview (10/11/2024): Accidental heroin overdose 08/16/21 Seeing [facility] in [place], [place] 03/2016 CKD (chronic kidney disease) stage 3, GFR 30-59 ml/min ([facility] V24, [facility] V28) 04/18/2015 Overview (10/11/2024): Renal [...] 09/05/2014 Left knee pain 06/08/2014 Overview (10/11/2024): [facility] - 06/06/14 - Kenalog injection; followup as needed Shoulder bursitis 01/12/2013 Generalized osteoarthrosis, involving multiple s ites 12/07/2012 Chronic low back pain 08/13/2010 Overview (10/11/2024): MRI 10/2012 discogenic degenerative changes at the L4-5 and L5-S1 levels, with diffuse bulging of the L4-5 disc and a COPD (chronic obstructive pu lmonary disease) ([facility] V24, [facility] V28) 08/13/2010 Overview (10/11/2024): IMPRESSION: [...] Type Department Care Team Description 03/08/2025 Telephone [facility] [address] [place] [address] Kade Lunsford MD Results; Defibrillator 03/07/2025 8:14 PM EDT - 03/07/2025 11:[address] [facility] Emergency [address] [place] [phone] Discharge Disposition: Left Against Medical Advice 02/14/2025 Telephone [facility] [address] [place] [address] Kade Lunsford MD Procedure (Primary ICD ) 02/13/2025 Telephone [facility] [address] [place] [address] Kade Lunsford MD Results 01/19/2025 Telephone [facility] [address] [place] [address] Kade Lunsford MD Appointment (Cardiac MRI) 01/10/2025 3:25 PM EST Consult [facility] [address] [place] [address] Kade Lunsford MD Coronary artery disease involving [place] coronary artery of [place] heart without angina pectoris (Primary Dx); Ischemic cardiomyopathy 12/26/2024 11:20 AM EST Office Visit [facility] [address] [place] [address] Joanna Rosen MD Coronary artery disease involving [place] coronary artery of [place] heart without angina pectoris (Primary Dx); Ischemic [...] pain COPD (chronic obstructive pu lmonary disease) ([facility] V24, [facility] V28) 08/13/2010 DX:COPD (chronic o bstructive pulmonary disease) ([facility]) Smoking DX:Smoking Atopic dermatitis DX:Atopic derm atitis Anxiety 02/15/2018 DX:Anxiety Microscopic hematuria 04/29/2018 DX:Microsc opic hematuria Recurrent genital herpes simplex 09/21/2018 DX:Recurrent genital herpes simplex Type 2 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, without long-term current use of insulin ([facility] V24, [facility] V28) 12/31/2022 DX:Type 2 diabetes mellitus with chronic kidney disease, without long-term current use of insulin ([facility]) Family History Medical History Relation [...] Description 03/29/2025 1:45 PM EDT Office Visit [facility] [address] [facility] [address] [place] [address] Kade Lunsford MD [address] [facility] [address] [place] [address] Health Maintenance Due Date Last Done Comments [...] EST Ischemic cardiomyopathy Coronary artery disease involving [place] coronary artery of [place] heart without angina pectoris ECG 12-LEAD Routine 12/26/2024 11:14 AM EST Coronary artery disease involving [place] coronary artery of [place] heart without angina pectoris LIPID PANEL Routine [...] GEMUSE QTc 443 ms GEMUSE P Wave [place] 74 degrees GEMUSE R [place] -60 degrees GEMUSE T [place] 75 degrees GEMUSE ECG Interpretation Normal sinus rhythm Left anterior fascicular block Inferior infarct (cited on or before 01-FEB-2024) When compared with ECG of 07-MAR-2025 20:21, (unconfirmed) No significant change was found Confirmed by GURDEEP LUNSFORD ([id number]) on 03/08/2025 8:47:00 PM GEMUSE 03/07/2025 9:55 PM EDT 03/08/2025 8:47 PM EDT us Armond Boland MD ECG ORDERABLES Final Resul t Performing Organization Address [facility] de Phone Number GEMUSE * Troponin I high sensitivity (03/07/2025 9:52 PM EDT) Only the most recent of2 resultswithin the time period is included. [facility] High Sensitivity Troponin I 28 <=79 ng/L LAB CHEMISTRY METHOD 03/07/2025 10:50 PM EDT [facility] Blood Venous blood specimen / Unknown Venipuncture / Unknown 03/07/2025 9:52 PM EDT 03/07/2025 10:03 PM EDT Narrative [facility] - 03/07/2025 10:50 PM EDT High levels of biotin in samples may falsely decrease hsTroponin values. ??Use caution when interpreting hsTroponin results in patients taking biotin who exhibit renal impairment (eGFR <60) or in patients taking more than 20 mg/day of biotin. us Armond Boland MD LAB BLOOD ORDERABLES Final Result Performing Organization Address [facility]/ZIP Co de Phone Number [facility] [address] [place] [address], * XR Chest 2 Views (03/07/2025 8:34 PM EDT) Anatomical Region Laterality Modality Body Radiographic Patti ging 03/08/2025 7:54 AM EDT Impressions 03/08/2025 7:56 AM EDT No acute pulmonary disease. No change since the prior study performed 01/31/2024. Code 69744 -------- FINAL REPORT -------- Dictated By: Roberth Almanzar Dictated Date: 03/08/2025 07:54 ET Assigned Physician: Roberth Almanzar Reviewed and Electronically Signed By: Roberth Almanzar Signed Date: 03/08/2025 07:56 ET Workstation ID: [id number] Transcribed By: Self Edit Transcribed Date: 03/08/2025 [...] change since the prior study performed01/31/2024. Code 27933 -------- FINAL REPORT -------- Dictated By: Roberth Almanzar Dictated Date: 03/08/2025 07:54 ET Assigned Physician: Roberth Almanzar Reviewed and Electronically Signed By: Roberth Almanzar Signed Date: 03/08/2025 07:56 ET Workstation ID: [id number] Transcribed By: Self Edit Transcribed Date: 03/08/2025 07:54 ET us Armond Boland MD IMG XR PROCEDURES Final Res ult * (ABNORMAL) CBC auto differential (03/07/2025 8:26 PM EDT) WBC 7.6 4.8 - 10.8 K/mcL LAB HEMETOLOGY METHOD 03/07/2025 9:16 PM EDT [facility] RBC 5.90(H) 4.50 - 5.50 M/mcL LAB HEMETOLOGY METHOD 03/07/2025 9:16 PM EDT [facility] Hemoglobin 15.8 13.5 - 17.5 g/dL LAB HEMETOLOGY METHOD 03/07/2025 9:16 PM EDT [facility] Hematocrit 49.4 42.0 - 54.0 % LAB HEMETOLOGY METHOD 03/07/2025 9:16 PM EDT [facility] MCV 84.4 79.0 - 98.0 FL LAB HEMETOLOGY METHOD 03/07/2025 9:16 PM EDT [facility] MCH 27.0 27.0 - 32.0 pcg LAB HEMETOLOGY METHOD 03/07/2025 9:16 PM EDT [facility] MCHC 32.0 32.0 - 37.0 g/dL LAB HEMETOLOGY METHOD 03/07/2025 9:16 PM EDT [facility] RDW 18.2(H) 11.0 - 15.0 % LAB HEMETOLOGY METHOD 03/07/2025 9:16 PM EDT [facility] Platelets 179 130 - 400 K/mcL LAB HEMETOLOGY METHOD 03/07/2025 9:16 PM EDT [facility] MPV 11.9(H) 7.0 - 11.0 FL LAB HEMETOLOGY METHOD 03/07/2025 9:16 PM EDT [facility] NRBC 0.0 <1.0 % [facility] NRBC Absolute 0.00 <0.10 K/mcL LAB HEMETOLOGY METHOD 03/07/2025 9:16 PM [facility] Neutrophils Relative 56.8 % LAB HEMETOLOGY METHOD 03/07/2025 9:16 PM [facility] Lymphocytes Relative 28.3 % LAB HEMETOLOGY METHOD 03/07/2025 9:[facility] Monocytes Relative 8.2 % LAB HEMETOLOGY METHOD 03/07/2025 9:16 PM [facility] Eosinophils Relative 5.9 % LAB HEMETOLOGY METHOD 03/07/2025 9:16 PM [facility] Basophils Relative 0.4 % LAB HEMETOLOGY METHOD 03/07/2025 9:16 PM [facility] Immature Granulocytes Relative 0.4 % LAB HEMETOLOGY METHOD 03/07/2025 9:16 PM [facility] Neutrophils Absolute 4.32 1.50 - 7.00 K/mcL LAB HEMETOLOGY METHOD 03/07/2025 9:16 PM [facility] Lymphocytes Absolute 2.15 1.00 - 5.00 K/mcL LAB HEMETOLOGY METHOD 03/07/2025 9:[facility] Monocytes Absolute 0.62 0.20 - 1.00 K/mcL LAB HEMETOLOGY METHOD 03/07/2025 9:16 PM [facility] Eosinophils Absolute 0.45 0.00 - 0.50 K/mcL LAB HEMETOLOGY METHOD 03/07/2025 9:16 PM [facility] Basophils Absolute 0.03 0.00 - 0.20 K/mcL LAB HEMETOLOGY METHOD 03/07/2025 9:16 PM EDT [facility] Immature Granulocytes Absolute 0.03 0.00 - 0.03 K/[facility] LAB HEMETOLOGY METHOD 03/07/2025 9:16 PM EDT [facility] Blood Venous blood specimen / Unknown Venipuncture / Unknown 03/07/2025 8:26 PM EDT 03/07/2025 8:54 PM EDT Armond Boland MD LAB BLOOD ORDERABLES Final Result [facility] [address] [place] [address], [place] [phone] * B-type natriuretic peptide (03/07/2025 8:26 PM EDT) BNP 89 <=100 pcg/mL LAB CHEMISTRY METHOD 03/07/2025 9:29 PM EDT [facility] Blood Venous blood specimen / Unknown Venipuncture / Unknown 03/07/2025 8:26 PM EDT 03/07/2025 8:54 PM EDT Armond Boland MD LAB BLOOD ORDERABLES Final Result [facility] [address] [place] [address], [place] [phone] * Magnesium (03/07/2025 8:26 PM EDT) Magnesium 2.2 1.9 - 2.6 mg/dL LAB CHEMISTRY METHOD 03/07/2025 9:32 PM EDT [facility] Blood Venous blood specimen / Unknown Venipuncture / Unknown 03/07/2025 8:26 PM EDT 03/07/2025 8:54 PM EDT Armond Boland MD LAB BLOOD ORDERABLES Final Result Performing Organization Address [facility]/ZIP Co de Phone Number [facility] [address] [place] [address], [place] [phone] * Lipase (03/07/2025 8:26 PM EDT) Pathologist [facility] Lipase 36 13 - 75 unit/L LAB CHEMISTRY METHOD 03/07/2025 9:32 PM EDT [facility] Blood Venous blood specimen / Unknown Venipuncture / Unknown 03/07/2025 8:26 PM EDT 03/07/2025 8:54 PM EDT Armond Boland MD LAB BLOOD ORDERABLES Final Result Performing Organization Address [facility]/ZIP Co de Phone Number [facility] [address] [place] [address], [place] [phone] * (ABNORMAL) Comprehensive metabolic panel (03/07/2025 8:26 PM EDT) [facility] Sodium 137 133 - 145 mmol/L LAB CHEMISTRY METHOD 03/07/2025 9:32 PM [facility] Potassium 4.6 3.5 - 5.5 mmol/L LAB CHEMISTRY METHOD 03/07/2025 9:32 PM [facility] Chloride 103 96 - 110 mmol/L LAB CHEMISTRY METHOD 03/07/2025 9:32 PM [facility] CO2 29 21 - 32 mmol/L LAB CHEMISTRY METHOD 03/07/2025 9:32 PM [facility] Anion Gap 5 3 - 11 LAB CHEMISTRY METHOD 03/07/2025 9:32 PM [facility] Glucose 89 70 - 100 mg/dL LAB CHEMISTRY METHOD 03/07/2025 9:32 PM [facility] BUN 20 5 - 25 mg/dL LAB CHEMISTRY METHOD 03/07/2025 9:32 PM [facility] Creatinine 1.59(H) 0.70 - 1.30 mg/dL LAB CHEMISTRY METHOD 03/07/2025 9:32 PM [facility] eGFR 51(L) >=60 mL/min/1. 73m2 LAB CHEMISTRY METHOD 03/07/2025 9:32 PM [facility] Comment:Calculation based on the??Chronic Kidney Disease Epidemiology Collaboration (CKD-EPI) equation refit??without adjustment for race. BUN/Creatinine Ratio 12.6 LAB CHEMISTRY METHOD 03/07/2025 9:32 PM [facility] Calcium 8.7 8.5 - 10.5 mg/dL LAB CHEMISTRY METHOD 03/07/2025 9:32 PM [facility] AST (SGOT) 32 10 - 42 unit/L LAB CHEMISTRY METHOD 03/07/2025 9:32 PM [facility] ALT (SGPT) 44 10 - 60 unit/L LAB CHEMISTRY METHOD 03/07/2025 9:32 PM [facility] Alkaline Phosphatase 92 42 - 121 unit/L LAB CHEMISTRY METHOD 03/07/2025 9:32 PM [facility] Total Protein 6.3 6.0 - 8.0 g/dL LAB CHEMISTRY METHOD 03/07/2025 9:32 PM [facility] Albumin 2.6(L) 3.2 - 5.0 g/dL LAB CHEMISTRY METHOD 03/07/2025 9:32 PM [facility] Total Bilirubin 0.3 0.0 - 1.4 mg/dL LAB CHEMISTRY METHOD 03/07/2025 9:32 PM [facility] Blood Venous blood specimen / Unknown Venipuncture / Unknown 03/07/2025 8:26 PM EDT 03/07/2025 8:54 PM EDT us Armond Boland MD LAB BLOOD ORDERABLES Final Result [facility] [address] [place] [address], * Lipid panel (06/17/2024) LDL/HDL Ratio 3 [...] Maintenance Insurance MEDICAID - [place] Care Teams Lamp Shade Joiner Relationship Specialty Start Date End Date Kendall Lane MD [address] [place] [address] [facility] - General 02/25/24
--- OUTSIDE RECORDS SUMMARY | 2025-03-14 11:07 | XMS_ITS | Encounter Summary ---
Author Organization [facility] Address [address] [place] [address] Phone Care Team Providers Care Welder Production Line Gas Name Role Phone Kendall Lane MD Primary Care Provider [phone] Reason for Visit * Reason Comments Med Refill Encounter Details Date Type Department Care Team ([facility] st Contact Info) Description 01/07/2024 Refill [facility] [address] [place] [phone] Branden Lomeli MD [address] [place] [address], [address] [address] Social History Tobacco Use Types Packs/Day Years [...] on filedocumented in this encounter Care Teams Welder Production Line Gas Relationship Specialty Start Date End Date Kendall Lane MD [address] [place] [address] PCP - General Internal Medicine 02/10/24 documented as of this encounter
--- OUTSIDE RECORDS SUMMARY | 2025-03-14 11:07 | XMS_ITS | Clinical Summary ---
Author Organization [facility] Address [address] [place] [address] Care Team Providers Care Transplant Coordinator Name Role Phone Kendall Lane MD Primary Care Provider [phone] Source Comments PLEASE NOTE, if this patient [...] hyperglycemia, without long-term current use of insulin ([facility]) Use to test 3 times daily 100 Each 5 024 Active blood-glucose meter monitoring kitIndications:Co ntrolled type 2 diabetes mellitus without complication, without long-term current use of insulin ([facility]) as needed for blood glucose monitoring Pt is Diabetic E 11.9 1 Each 024 Active blood sugar diagnostic (FREESTYLE TEST) stripsIndications :Type 2 diabetes mellitus with hyperglycemia, without long-term current use of insulin ([facility]) Use 1 Each as directed 3 (three) times a day USE 1 FREESTYLE TEST STRIP TO TEST BLOOD GLUCOSE BEFORE se to test BG 3 times daily 100 Each 5 024 Active lancets 28 gaugeIndications: Type 2 diabetes mellitus with hyperglycemia, without long-term current use of insulin ([facility]) Use 1 Lancet as directed 3 (three) [...] complication, without long-term current use of insulin ([facility]) Take 1 Tablet by mouth every morning 90 Tablet 1 024 Active glipiZIDE (GLUCOTROL) 10 mg tabletIndications :Controlled type 2 diabetes mellitus without complication, without long-term current use of insulin ([facility]) TAKE 1 TABLET BY MOUTH [...] polyneuropathy associated with type 2 diabetes mellitus ([facility]) Take 2 Capsules by mouth 3 (three) [...] complication, without long-term current use of insulin ([facility]) TAKE 1 TABLET BY MOUTH EVERY DAY 90 Tablet 025 Active pioglitazone (ACTOS) 45 mg tabletIndications :Controlled type 2 diabetes mellitus without complication, without long-term current use of insulin ([facility]) Take 1 Tablet by mouth [...] CKD (chronic kidney disease) 03/03/2024 Overview (03/03/2024): [facility] Nephrology Anticoagulation goal of INR 2 to 3 02/09/2024 NSTEMI (non-ST elevated myocardial infarction) ( [facility]) 02/08/2024 Overview (02/08/2024): Seen initially at [facility] 01/31/24 NSTEMI [facility]- transfer from [facility] for evaluation and management of NSTEMI. S/P PCI- 02/01/24 - [facility] Cardiology CT angio of [...] - goes to [facility] Admission for NSTEMI echo revealed LV thrombus [...] complication, without long-term current use of insulin ([facility]) 06/25/2023 Other hyperlipidemia 06/25/2023 Diabetic polyneuropathy asso ciated with type 2 diabetes mellitus ([facility]) 06/25/2023 Resolved Problems Problem Noted Date Diagnosed Date Resolved Date Elevated serum creatinine 06/29/2023 Overview (02/08/2024): Sees Nephrology Dr. Isai Lomeli Encounters Date Type Department Care Team Description 02/14/2025 3:00 PM EDT Office Visit [address] [address] Kwesi Skelton, PharmD Anticoagulation goal of INR 2 to 3 (Primary Dx); NSTEMI (non-ST elevated myocardial infarction) ([facility]); LV (left ventricular) mural thrombus 01/16/2025 11:20 AM EST Office Visit [address] MD Controlled type 2 diabetes mellitus without complication, without long-term current use of insulin ([facility]) (Primary Dx); Primary hypertension; Other hyperlipidemia; Diabetic polyneuropathy associated with type 2 diabetes mellitus ([facility]) 01/13/2025 1:40 PM EST Office Visit [address] [address] Kwesi Skelton, PharmD Type 2 diabetes mellitus with hyperglycemia, without long-term current use of insulin ([facility]) (Primary Dx); Anticoagulation goal of INR 2 to 3; NSTEMI (non-ST elevated myocardial infarction) ([facility]) 12/22/2024 2:40 PM EST Telemedicine Visit [address] [phone] Tanya Lazo NP Primary hypertension (Primary Dx); Controlled type 2 diabetes mellitus without complication, without long-term current use of insulin ([facility]); NSTEMI (non-ST elevated myocardial infarction) ([facility]); LV (left ventricular) mural thrombus; Anticoagulation goal of INR 2 to 3 12/19/2024 Interim Notes [address] [address] Rudolph Ordoñez [place] 12/16/2024 Interim Notes [address] [address] PierrejuandanielleBrandi 12/16/2024 Interim Notes [address] [address] MD Multiple falls (Primary Dx) 12/15/2024 Interim Notes [address] [address] Lulu Corley RN 12/15/2024 Interim Notes [address] [address] Heavenly Maria from Last 3 Months Immunizations [...] Description 03/21/2025 3:00 PM EDT Office Visit [facility] [address] [place] [address] Kwesi Skelton, PharmD [address] [place] [address] Health Maintenance Due Date Last Done Comments [...] 08/26/2023, 06/25/2023 Imm-Zoster, Recombinant Completed 08/26/2023, 06/26 [id number] Discontinued 11/02/2023, 07/18, 11/28/2021, Additional history exists [...] hyperglycemia, without long-term current use of insulin ([facility]) INR COAGUCHEK XS (POCT) Routine 01/13/2025 2:03 PM EST Anticoagulation goal of INR 2 to 3 GLUCOSE, BLOOD BY GLUCOSE MONITORING DEVICE (CLIA WAIVED)POCT Routine 01/13/2025 2:03 PM EST Type 2 diabetes mellitus with hyperglycemia, without long-term current use of insulin ([facility]) CARD SCANNED DOCUMENT 01/10/2025 3:00 [...] complication, without long-term current use of insulin ([facility]) Stage 3a chronic kidney disease ([facility]) LIPIDS W RFLX TO DIRECT LDL Routine 03/04/2024 9:16 AM EDT Other hyperlipidemia MICROALBUMIN/CREATININ E RATIO, URINE, RANDOM Routine 02/12/2024 1:38 PM EDT Controlled type 2 diabetes mellitus without complication, without long-term current use of insulin ([facility]) REFERRAL TO DIABETIC RETINAL EXAM Routine 01/13/2024 3:00 AM EST Controlled type 2 diabetes mellitus without complication, without long-term current use of insulin ([facility]) HIV 1/2 AG & AB [...] INR 3.0 2.0 - 3.5 Ratio [facility]- BACK OFFICE POCT Comment:36.4secs Blood Blood / Unknown 02/14/2025 3 :11 PM EDT Kwesi Hyman PharmD LAB - BLOOD D RAW Final Result [facility]- BACK OFFICE POCT * (ABNORMAL) GLYCOSYLATED (A1C) DEVICE (CLIA WAIVED) POCT (01/13/2025 2:38 PM EST) HGB A1C 7.2(A) 4.2 - 6.5 % [facility] BACK OFFICE POCT Capillary Blood Blood / Unknown 2:38 PM EST Kwesi Hyman PharmD LAB - BLOOD D RAW Final Result [facility]- BACK OFFICE POCT * (ABNORMAL) GLUCOSE, BLOOD BY GLUCOSE MONITORING DEVICE (CLIA WAIVED)POCT (01/13/2025 2:03 PM EST) GLUCOSE 109(A) 70 - 100 mg/dL [facility]- BACK OFFICE POCT Capillary Blood Blood / Unknown 2:03 PM EST Kwesi Hyman PharmD LAB - BLOOD D RAW Final Result [facility]- BACK OFFICE POCT * CARD SCANNED DOCUMENT (01/10/2025 3:00 AM EST) Only the most recent of2 resultswithin the time period is included. 01/10/2025 3:00 AM EST Result [facility] Mireya Mehta PA-C SCAN ECGS Final Result * REFERRAL SCANNED DOCUMENT (01/10/2025 3:00 AM EST) Only the most recent of3 resultswithin the time period is included. 01/10/2025 3:[address] MD SCAN REFERRAL Final Result * (ABNORMAL) COMPREHENSIVE METABOLIC PANEL (09/09/2024 9:27 AM EDT) GLUCOSE 121 65 - 139 mg/dL imo[facility]im [facility] Comment: ?Non-fasting reference interval UREA NITROGEN (BUN) 16 7 - 25 mg/dL imo.im [facility] CREATININE (blood) 1.32(H) 0.70 - 1.30 mg/dL imo.im [facility] EGFR 64 > OR = 60 mL/min/1. 73m2 imo.im [facility] BUN/CREATININE RATIO 12 6 - 22 (calc) imo.im [facility] SODIUM 140 135 - 146 mmol/L [facility] [facility] POTASSIUM 4.9 3.5 - 5.3 mmol/L imo.im [facility] CHLORIDE 103 98 - 110 mmol/L imo.im [facility] CARBON DIOXIDE 30 20 - 32 mmol/L imo[facility]im [facility] CALCIUM 9.4 8.6 - 10.3 mg/dL imo[facility]im [facility] PROTEIN, TOTAL 6.2 6.1 - 8.1 g/dL [employer] [facility] ALBUMIN 3.4(L) 3.6 - 5.1 g/dL [employer] [place] [facility] GLOBULIN 2.8 1.9 - 3.7 g/dL (calc) [employer] [facility] ALBUMIN/GLOBULI N RATIO 1.2 1.0 - 2.5 (calc) [facility] [place] [employer] BILIRUBIN, TOTAL 0.3 0.2 - 1.2 mg/dL [employer] [facility] ALKALINE PHOSPHATASE 68 35 - 144 U/L [employer] [facility] AST 23 10 - 35 U/L [employer] [facility] ALT 27 9 - 46 U/L [employer] [facility] Blood Blood / Unknown 09/09/2024 9 :27 AM EDT 09/09/2024 9:28 AM EDT Narrative [employer] [facility] - 09/10/2024 6:40 AM EDT FASTING:NO us Kendall Lane MD LAB - BLOOD DRAW Final Result [facility] [address] [address], [employer] [address] [address] * (ABNORMAL) LIPIDS W RFLX TO DIRECT LDL (03/04/2024 9:16 AM EDT) CHOLESTEROL, TOTAL 126 <200 mg/dL [employer] [facility] HDL CHOLESTEROL 41 > OR = 40 mg/dL [employer] [facility] TRIGLYCERIDES 162(H) <150 mg/dL [employer] [facility] LDL-CHOLESTEROL 61 99 mg/dL (calc) [employer] [facility] Comment: Reference range: <100 Desirable range <100 mg/dL for primary prevention; ?? <70 mg/dL for patients with CHD or diabetic patients with > or = 2 CHD risk factors. LDL-C is now calculated using the Archie calculation, which is a validated novel method providing better accuracy than the Friedewald equation in the estimation of LDL-C. Vicente WISE et al. TY. 2013;310(19): 2651-6445 (http://education.inDinero.Hot Hotels/faq/PWR796) CHOL/HDLC RATIO 3.1 <5.0 (calc) [facility] NON-HDL CHOLESTEROL 85 <130 mg/dL (calc) [facility] Comment: For patients with diabetes plus 1 major ASCVD risk factor, treating to a non-HDL-C goal of <100 mg/dL (LDL-C of <70 mg/dL) is considered a therapeutic option. Blood Blood / Unknown 03/04/2024 9 :16 AM EDT 03/04/2024 9:18 AM EDT Narrative [employer] - 03/05/2024 6:30 AM EDT FASTING:YES Kendall Lane MD LAB - BLOOD DRAW Final Result Performing Organization Address [facility] de Phone Number [employer] [address] [place] [address], [employer] [address] [address] * MICROALBUMIN/CREATININE RATIO, URINE, RANDOM (02/12/2024 1:38 PM EDT) Pathologist [facility] CREATININE, RANDOM URINE 83 20 - 320 mg/dL [facility] MICROALBUMIN 1.2 mg/dL [employer] [facility] Comment: Reference Range Not established MICROALBUMIN/CREA TININE RATIO, RANDOM URINE 14 <30 mg/g creat [facility] Comment: The ADA defines abnormalities in albumin [...] DRAW Final Resul t Performing Organization Address [facility] Co de Phone Number [employer] [address] [place] [address], [place] [facility] [address] [address] * REFERRAL TO DIABETIC RETINAL EXAM (01/13/2024 3:00 AM EST) 01/13/2024 3:[address] AM EST us Kendall Lane MD REFERRAL Edited Result - Final * HEPATITIS C AB W/RFLX HCV RNA, QT, RT PCR (06/25/2023 10:35 AM EDT) HEPATITIS C ANTIBODY NON-REACT FOREIGN NON-REACT FOREIGN imo.im [facility] Comment: HCV antibody was non-reactive. There is no laboratory evidence of HCV infection. In most cases, no further action is required. However, if recent HCV exposure is suspected, a test for HCV RNA (test code 85414) is suggested. For additional information please refer to http://education.UCampus/faq/SNK75h4 (This link is being provided for informational/ educational purposes only.) Blood Blood / Unknown 06/25/2023 1 0:35 AM EDT 06/25/2023 10:36 AM EDT Narrative [facility] - 06/26/2023 6:28 PM EDT FASTING:NO Kendall Lane MD LAB - BLOOD DRAW Edited Result - Final [facility] [address] [place] [address], [facility] [address] [address] * HIV 1/2 AG & AB W/RFLX (4TH GEN) (06/25/2023 10:35 AM EDT) HIV AG/AB, 4TH GEN NON-REAC TIVE NON-REAC TIVE imo.im [facility] Comment: HIV-1 antigen and HIV-1/HIV-2 antibodies were [...] ?? For additional information please refer to http://education.UCampus/faq/JCY455 (This link is being provided for informational/ educational purposes only.) The performance of this assay has not been clinically validated in patients less than 2 years old. Blood Blood / Unknown 06/25/2023 1 0:35 AM EDT 06/25/2023 10:36 AM EDT Narrative [facility] - 06/26/2023 6:28 PM EDT FASTING:NO us Kendall Lane MD LAB - BLOOD DRAW Final Result Performing Organization Address [facility] de Phone Number [facility] [address] [place] [address], [employer] [place] [employer] [address] [place] [phone] * FECAL GLOBIN BY IMMUNOCHEMISTRY (FIT) (06/24/2023 8:00 PM EDT) FECAL GLOBIN BY IMMUNOCHEMISTRY See Note [facility] Comment: ??FECAL GLOBIN BY IMMUNOCHEMISTRY ?Micro Number: ?[id number] ??Test Status: ? Final ??Specimen Source: ?? Insure (tm) fobt test card ??Specimen Quality: ??Adequate ??Fecal Globin: ?Not Detected Stool Stool specimen / Unknown 06/24/2023 8:00 PM EDT 06/30/2023 3:48 AM EDT us Kendall [address] MD LAB - NO BLOOD DRAW Final Resul t Performing Organization Address [facility] Co de Phone Number [facility] [address] [place] [address], [employer] [address] [phone] from Last 3 Months or Most Recently Relevant to Health Maintenance Insurance [address] [employer] Care Teams Transplant Coordinator Relationship Specialty Start Date End Date Kendall Lane MD [address] [place] [address] PCP - General Internal Medicine 06/25/23
--- OUTSIDE RECORDS SUMMARY | 2025-03-14 11:07 | XMS_ITS | Clinical Summary ---
Author Organization [facility] Address [address] [place] [address] Care Team Providers Care Crane Service Technician Name Role Phone Branden Lomeli MD Primary Care Provider [phone] Allergies No known active allergies Medications Medication [...] of Treatment Not on file Care Teams Crane Service Technician Relationship Specialty Start Date End Date Branden Lomeli MD [address] [facility] [place] [address] PCP - General Nephrology 01/16/21
--- OUTSIDE RECORDS SUMMARY | 2025-03-14 11:07 | XMS_ITS | Encounter Summary ---
Author Organization [facility] [place] [address] Care Team Providers Care Music Industry Intern Name Role Phone Kendall Lane MD Primary Care Provider Reason for Visit * Reason Onset Date Comments Procedure 02/14/2025 Primary ICD Encounter Details Date Type Department Care Team ([facility] st Contact Info) Description 02/14/2025 Telephone [facility] - [facility] [address] [facility] [address] [place] [address] Kade Zhang MD 300 [facility] [address] [place] [address] Procedure (Primary ICD ) Social History Tobacco [...] next steps. Edmundo can be reached at [phone] if there are any questions. * William [...] Description 03/29/2025 1:45 PM EDT Office Visit [facility] - [facility] [address] [facility] [address] [place] [phone] Kade Zhang MD [address] [place] [address] documented as of this encounter Visit Diagnoses Not on filedocumented in this encounter Care Teams Music Industry Intern Relationship Specialty Start Date End Date Kendall Lane MD [address] [place] [address] PCP - General 02/25/24 documented as of this encounter
--- OUTSIDE RECORDS SUMMARY | 2025-03-14 11:07 | XMS_ITS | Encounter Summary ---
Author Organization [facility] Address [address] [place] [address] Care Team Providers Care Bung Driver Name Role Phone Kendall Lane MD Primary Care Provider [phone] Reason for Visit * Reason Onset Date Comments Results 02/13/2025 Encounter Details Date Type Department Care Team ([facility] st Contact Info) Description 02/13/2025 Telephone [facility] - [facility] [address] [facility] [address] [place] [address] Kade Bautista MD 300 [facility] [address] [place] [address] Results Social History Tobacco Use Types Packs/Day [...] any questions Edmundo can be reached at [phone]. Please call him when his results come back. documented in this encounter Plan of Treatment Upcoming Encounters Date Type Department Care Team (Late st Contact Info) Description 03/29/2025 1:45 PM EDT Office Visit [facility] - [address] [place] [address] Kade Bautista MD [address] [place] [address] documented as of this encounter Visit Diagnoses Not on filedocumented in this encounter Care Teams Bung Driver Relationship Specialty Start Date End Date Kendall Lane MD [address] [place] [address] PCP - General 02/25/24 documented as of this encounter
--- OUTSIDE RECORDS SUMMARY | 2025-03-14 11:07 | XMS_ITS | Encounter Summary ---
Author Organization [facility] Address [address] [place] [address] Phone Care Team Providers Care Movie Star Name Role Phone Kendall Lane MD Primary Care Provider [phone] Encounter Details Date Type Department Care Team (Late st Contact Info) Description 04/03/2021 Orders Only [facility] [address] [place] [phone] Sonia Shen MA Chronic kidney disease, not [...] Primary documented in this encounter Care Teams Movie Star Relationship Specialty Start Date End Date Kendall Lane MD [address] [place] [address] PCP - General Internal Medicine 02/10/24 documented as of this encounter
--- OUTSIDE RECORDS SUMMARY | 2025-03-14 11:07 | XMS_ITS | Encounter Summary ---
Author Organization [facility] [place] [address] Care Team Providers Care Allergy Nurse Name Role Phone Kendall Lane MD Primary Care Provider [phone] Reason for Visit * Reason Onset Date Comments Results 03/08/2025 Defibrillator 03/08/2025 Encounter Details Date Type Department Care Team (Late st Contact Info) Description 03/08/2025 Telephone [facility] - [facility] [address] [facility] [address] [place] [address] Kade Zhang MD 300 [facility] [address] [place] [address] Results; Defibrillator Social History Tobacco Use Types [...] Please return his call to discuss at [phone]. documented in this encounter Plan of Treatment Upcoming Encounters Date Type Department Care Team (Late st Contact Info) Description 03/29/2025 1:45 PM EDT Office Visit [facility] - [facility] [address] [facility] [address] [place] [address] Kade Zhang MD 300 [facility] [address] [place] [address] documented as of this encounter Visit Diagnoses Not on filedocumented in this encounter Care Teams Allergy Nurse Relationship Specialty Start Date End Date Kendall Lane MD [address] [place] [address] PCP - General 02/25/24 documented as of this encounter
[2025-03-20 15:59] LABS: Testosterone, Free 101 pg/mL (35.0-155.0); Testosterone, Total 504 ng/dL (250-1100)
== END 2025-03-14 09:54 | disposition home or self-care (01) ==
LOC: HO.10HDL 09:53
PROVIDERS: Visit Provider Urology
DX: E29.1 Testicular hypofunction (principal)
CPT/HCPCS: 36415; 84402; 84403